=== PATIENT | female | born 1960 | race Caucasian/White ===

== ENCOUNTER 2019-04-09 08:33 | Inpatient (IN) | payer MEDICAID, OTHER | END 2019-05-03 15:15 | disposition home or self-care (01) | LOC: DOU IN ICU 04-11 14:03 → TELE-EAST 04-16 21:50 → EAST 05-02 13:06 → ER 08:33 → CENTRAL 04-10 16:34 → OVERFLOW 13:28 → CENTRAL 15:11 | PROC: 0DB78ZX Excision of Stomach, Pylorus, Via Natural or Artificial Opening Endoscopic, Diagnostic (ICD-10-PCS; principal; 2019-04-10 11:34) | PROC: 0DTM0ZZ Resection of Descending Colon, Open Approach (ICD-10-PCS; 2019-04-10 11:34) | PROC: 0WBF0ZZ Excision of Abdominal Wall, Open Approach (ICD-10-PCS; 2019-04-10 11:34) | PROC: 0DTN0ZZ Resection of Sigmoid Colon, Open Approach (ICD-10-PCS; 2019-04-10 11:34) | PROC: 0DBM8ZX Excision of Descending Colon, Via Natural or Artificial Opening Endoscopic, Diagnostic (ICD-10-PCS; 2019-04-10 11:34) | DX: C18.9 Malignant neoplasm of colon, unspecified (principal); A41.9 Sepsis, unspecified organism; E43 Unspecified severe protein-calorie malnutrition; E87.1 Hypo-osmolality and hyponatremia; D62 Acute posthemorrhagic anemia; J98.11 Atelectasis; K29.70 Gastritis, unspecified, without bleeding; B95.2 Enterococcus as the cause of diseases classified elsewhere; N39.0 Urinary tract infection, site not specified; D64.9 Anemia, unspecified ==

== ENCOUNTER 2019-05-28 16:15 | Inpatient (IN) | payer MEDICAID ==
[~2019-05-28] VITALS: Ht 154.9 cm; Wt 57.4 kg
[~2019-05-28 16:15] MED LIST: FER325T PO; NIC21P TOP; PANT40TA2 PO
[2019-05-28] MEDS ORDERED: SODIUM CHLORIDE 0.9% 1,000 ML IVB ONE (17:08)
[2019-05-28 18:26] LABS: Basophils # (auto) 0.1 uL; Eosinophils # (auto) 0 uL; Lymphocytes # (auto) 2.5 uL; Red Blood Cells 4.51 10^6/uL (4.0-5.20)
[2019-05-28 18:30] LABS: Basophils % (auto) 0.8 % (0.0-2.0); Eosinophils % (auto) 0.3 % (0.0-7.0); Hematocrit 42.7 % (36.0-46.0); Hemoglobin 13.7 g/dL (12.2-16.2); Lymphocytes % (auto) 20.6 % (10.0-50.0); Mean Corpuscular Hemoglobin 30.5 pg (28.0-32.0); Mean Corpuscular Hgb Conc. 32.1 g/dL (32.0-36.0); Mean Corpuscular Volume 94.9 fL (80.0-100.0); Monocytes # (auto) 0.9 uL; Monocytes % (auto) 7.3 % (0.0-12.0); Neutrophils # (auto) 8.8 uL; Platelet Count (auto) 478 10^3/uL (140-450); Red Cell Distribution Width 15.8 % (11.8-14.3); White Blood Cell 12.4 10^3/uL (4.4-10.8)
[2019-05-28 18:47] LABS: INR 1.01 (0.9-1.15); Partial Thromboplastin Time 26.8 sec (23.64-32.05)
[2019-05-28 18:48] LABS: Albumin 3.5 g/dL (3.4-5.0); Calcium 9.8 mg/dL (8.5-10.1); Magnesium 2.5 mg/dL (1.6-2.6); Potassium 3.8 mmol/L (3.5-5.1)
[2019-05-28 18:52] LABS: BUN/Creatinine Ratio 11.5; Bilirubin, Total 0.3 mg/dL (0.2-1.0); Total Protein 8.6 g/dL (6.4-8.2)
[2019-05-28] MEDS ORDERED: IOHEXOL 300 MG/ML 100ML BOTTLE IJ ONE (20:37)
[2019-05-28] MEDS ORDERED: ONDANSETRON HCL 4 MG/2 ML VIAL IV ONE (21:30)
[2019-05-28] MEDS ORDERED: MORPHINE SULF INJ 2 MG/ML SYRINGE 1ML IV ONE (21:30)
[2019-05-29] VITALS (7 sets, daily range): BP systolic 99–130; BP diastolic 52–72
[2019-05-29] MEDS ORDERED: MORPHINE SULFATE 4 MG/ML SYR/VIAL IV ONE (00:15)
[2019-05-29] MEDS ORDERED: PANTOPRAZOLE 40 MG/10 ML VIAL INJ IV ONE (01:15)
[2019-05-29] MEDS ORDERED: FAMOTIDINE (10MG/ML) 2ML VL IV ONE (02:00)
[2019-05-29] MEDS ORDERED: PROMETHAZINE HCL 25 MG/ML 1ML IV ONE (02:00)
[2019-05-29] MEDS ORDERED: SODIUM CHLORIDE 0.9% 1,000 ML IV ONE (02:00)
[2019-05-29] MEDS ORDERED: METOCLOPRAMIDE HCL 5MG/ml INJ 2ml VIAL IV ONE (02:15)
--- NOTE | 2019-05-29 03:30 | NUR ---
Pt Arrived on Unit Pt arrived on unit via stretcher accompanied by 2 family members. Pt is ambulatory with a steady gait. Pt is a/ox4 with no s/s of distress or sob. Pt states that she is in some mild pain but it is tolerable. Safety measures maintained with side rails up, bed in lowest position and call light within reach. Will continue to monitor for changes q1hr and prn.
[2019-05-29] MEDS ORDERED: TRAM50TA2 PO (04:34)
[2019-05-29] MEDS ORDERED: NIC21P TOP (04:34)
[2019-05-29] MEDS ORDERED: ACET120S38 PR (04:34)
[2019-05-29] MEDS ORDERED: ONDA-144 PO (04:34)
--- NOTE | 2019-05-29 04:37 | NUR ---
UNKNOWN DOSAGES ON MED RECONCILIATION PT stated that she is unaware of the dosages she takes on stated medications. She stated she will have her mother bring in the list. Will endorse to day shift.
--- NOTE | 2019-05-29 04:59 | NUR ---
MRSA SWAB SENT TO LAB
[2019-05-29] MEDS: MORPHINE SULFATE 4 MG/ML SYR/VIAL IV PRN ×5 (05:30→22:07)
[2019-05-29] MEDS: ONDANSETRON HCL 4 MG/2 ML VIAL IV PRN ×5 (05:30→22:06)
[2019-05-29] MEDS ORDERED: CLINDAMYCIN 600MG IV 50 ML IV SCH (06:00)
--- NOTE | 2019-05-29 07:45 | NUR ---
RECEIVED REPORT AND ASSUME CARE OF PT. A/OX4. DENIED S/S ACUTE DISTRESS. UPDATE PT WITH POC. BED AT LOWEST POSITION. CALL LIGHT AND BELONGINGS WITHIN REACH. WILL CONT TO MONITOR.
[2019-05-29] MEDS ORDERED: INFLUENZA QUAD 2018-2019 0.5 ML SYRG IM ONE (08:00)
[2019-05-29] MEDS ORDERED: cefTRIAXone 1GM/50ML D5W 50 ML IV SCH (09:00)
[2019-05-29] MEDS ORDERED: VANCOMYCIN PER PHARMACY 0 MG IV SCH (09:30)
[2019-05-29] MEDS: FAMOTIDINE 20 MG TAB PO SCH ×2 (09:47→21:15)
[2019-05-29] MEDS: MEROPENEM 1GM IVPB 100 ML IV SCH ×2 (10:58→21:15)
[2019-05-29] MEDS: VANCOMYCIN 500 MG in D5W 5% 100 ML IV SCH (12:29)
[2019-05-29] MEDS ORDERED: GASTROGRAFIN 120 ML SOL ONE (14:46)
[2019-05-29] MEDS ORDERED: DIAZEPAM 5 MG/ML 2ML SYRG IV ONE (16:15)
[2019-05-29] MEDS: NICOTINE 21MG/24 HR TOPICAL PATCH TD SCH (17:13)
--- NOTE | 2019-05-29 17:41 | NUR ---
assessment Patient will need a resumption order for [facility] on discharge. Addendum: 05/29/19 at 1742 by Yolis COLON Amended: Links added.
--- NOTE | 2019-05-29 19:31 | NUR ---
Opening Shift Note Assumed care of patient, awake and alert. Pt has complaint of ABD pain 05/15. Instructed on POC and to call for assist as needed. Pt is laying in bed with the side rails up x2 and the bed is locked in the lowest position. Call light is within reach. Will continue to monitor.
[2019-05-30] MEDS: VANCOMYCIN 500 MG in D5W 5% 100 ML IV SCH ×2 (00:28→12:00)
[2019-05-30] MEDS: ONDANSETRON HCL 4 MG/2 ML VIAL IV PRN ×4 (04:26→20:33)
[2019-05-30] MEDS: MORPHINE SULFATE 4 MG/ML SYR/VIAL IV PRN ×4 (04:26→20:33)
[2019-05-30 04:59] VITALS: BP 106/59
[2019-05-30 05:25] LABS: Basophils # (auto) 0.1 uL; Basophils % (auto) 0.5 % (0.0-2.0); Eosinophils # (auto) 0.1 uL; Eosinophils % (auto) 0.7 % (0.0-7.0); Hematocrit 39.6 % (36.0-46.0); Lymphocytes # (auto) 3.2 uL; Lymphocytes % (auto) 25.2 % (10.0-50.0); Mean Corpuscular Hemoglobin 30.8 pg (28.0-32.0); Mean Corpuscular Volume 93.3 fL (80.0-100.0); Monocytes # (auto) 0.7 uL; Monocytes % (auto) 5.7 % (0.0-12.0); Neutrophils # (auto) 8.6 uL; Neutrophils % (auto) 67.9 % (37.0-80.0); Platelet Count (auto) 410 10^3/uL (140-450); Red Blood Cells 4.24 10^6/uL (4.0-5.20); Red Cell Distribution Width 15.7 % (11.8-14.3); White Blood Cell 12.6 10^3/uL (4.4-10.8)
[2019-05-30 05:29] LABS: Calcium 8.9 mg/dL (8.5-10.1); Potassium 3.6 mmol/L (3.5-5.1)
[2019-05-30 05:35] LABS: Bilirubin, Total 0.3 mg/dL (0.2-1.0); Total Protein 7.4 g/dL (6.4-8.2)
[2019-05-30 08:00] VITALS: BP 121/68
[2019-05-30 08:15] VITALS: BP 121/68
[2019-05-30] MEDS ORDERED: GASTROGRAFIN 120 ML SOL ONE ×2 (08:52→13:01)
[2019-05-30] MEDS: FAMOTIDINE 20 MG TAB PO SCH ×2 (10:11→21:34)
[2019-05-30] MEDS: MEROPENEM 1GM IVPB 100 ML IV SCH ×2 (10:11→21:34)
[2019-05-30] MEDS: NICOTINE 21MG/24 HR TOPICAL PATCH TD SCH (10:12)
[2019-05-30] MEDS: HYDROcodone-ACET 5/325MG TAB PO PRN ×2 (10:43→23:52)
[2019-05-30] MEDS ORDERED: ALPRAZolam 0.5 MG TAB PO ONE (12:00)
[2019-05-30 12:23] VITALS: BP 132/72
--- NOTE | 2019-05-30 13:17 | NUR ---
PATIENT OFF UNIT PATIENT TAKEN OFF UNIT VIA BED FOR PROCEDURE. Signed: 05/30/19 at 1350 by YARITZA MASCORRO <Co-Signature Required> Co-Signed: 05/30/19 at 1350 by Junior Gilbert RN
[2019-05-30 16:45] VITALS: BP 136/76
--- NOTE | 2019-05-30 19:20 | NUR ---
OPENING NOTE Received report from day shift RN. Patient is A&O X's 4 with no s/s of distress noted. Patient reports abdominal pain, will medicate as prescribed. Educated patient on POC and to use call light when in need of assistance. Patient verbalized understanding. Bed is in lowest/locked position with side rails up X's 2 and call light is within reach of patient. Will continue to monitor for changes and round hourly/PRN.
[2019-05-30 21:30] VITALS: BP 122/74
[2019-05-31] MEDS: VANCOMYCIN 500 MG in D5W 5% 100 ML IV SCH ×2 (00:13→12:53)
[2019-05-31] MEDS: ONDANSETRON HCL 4 MG/2 ML VIAL IV PRN ×2 (00:35→09:06)
[2019-05-31] MEDS: MORPHINE SULFATE 4 MG/ML SYR/VIAL IV PRN ×2 (00:35→09:05)
[2019-05-31 05:00] VITALS: BP 92/55
[2019-05-31 08:00] VITALS: BP 105/60
[2019-05-31] MEDS: FAMOTIDINE 20 MG TAB PO SCH ×2 (10:42→21:44)
[2019-05-31] MEDS: MEROPENEM 1GM IVPB 100 ML IV SCH ×2 (10:42→21:44)
[2019-05-31] MEDS: NICOTINE 21MG/24 HR TOPICAL PATCH TD SCH (10:44)
[2019-05-31 12:00] VITALS: BP 96/69
[2019-05-31] MEDS ORDERED: GOLYTELY 4L KIT PO ONE (13:30)
[2019-05-31] MEDS: KETOROLAC TROMETH 15 mg/ml 1ML VL IV PRN ×2 (13:30→21:44)
[2019-05-31 17:01] VITALS: BP 106/61
[2019-05-31] MEDS: ACETAMINOPHEN 325 MG TAB PO PRN (17:51)
--- NOTE | 2019-05-31 19:10 | NUR ---
OPENING NOTE Received report from day shift RN. Patient is A&O X's 4 with no s/s of distress. She reports no pain at this time. Her family is at bedside. Educated patient on POC and to use call light when in need of assistance. Patient verbalized understanding. She has GOLYTELY at bedside. Bed is in lowest/locked position with side rails up X's 2 and call light is within reach of patient. Will continue to monitor for changes and round hourly/PRN.
[2019-05-31] MEDS: TEMAZEPAM 15 MG CAP PO PRN (21:44)
[2019-05-31 22:00] VITALS: BP 101/66
[2019-06-01] MEDS: VANCOMYCIN 500 MG in D5W 5% 100 ML IV SCH ×2 (00:03→12:07)
[2019-06-01] MEDS: ACETAMINOPHEN 325 MG TAB PO PRN ×3 (02:38→18:53)
--- NOTE | 2019-06-01 02:43 | NUR ---
IV INSERTION IV access obtained, via clean sterile technique by inserting 20 gauge catheter in left hand after 2 attempts. IV secured properly. No trauma to site. Patient tolerated well. 20G IV to left AC was removed at this time. Catheter was fully intact. Gauze applied to site
[2019-06-01 05:00] VITALS: BP 100/57
[2019-06-01] MEDS: KETOROLAC TROMETH 15 mg/ml 1ML VL IV PRN ×3 (06:16→22:55)
[2019-06-01 08:00] VITALS: BP 111/66
[2019-06-01] MEDS: NICOTINE 21MG/24 HR TOPICAL PATCH TD SCH (10:45)
[2019-06-01] MEDS: FAMOTIDINE 20 MG TAB PO SCH ×2 (10:45→21:33)
[2019-06-01] MEDS: MEROPENEM 1GM IVPB 100 ML IV SCH ×2 (10:46→21:33)
[2019-06-01 12:30] VITALS: BP 108/67
[2019-06-01 17:00] VITALS: BP 103/64
--- NOTE | 2019-06-01 20:00 | NUR ---
RECEIVED PATIENT FROM DAY SHIFT RN. PATIENT RESTING IN BED. NO S/S OF DISTRESS NOTED. C/O PAIN @ 4/10 AFTER PAIN MEDICATION GIVEN EARLIER. PATIENT UNDERSTOOD THE SCHEDULE OF PAIN MANAGEMENT. WILL COME BACK FOR PAIN MEDICATION LATER WHEN THE TIME IS DUE AND PER PATIENT REQUESTS. POC INSTRUCTED AND ENCOURAGED PATIENT TO CALL FOR SWITCHBOARD OPERATOR IF NEEDED. BED IN LOWEST POSITION WITH SIDE RAILS UP X 2. CALL TAVERAS WITHIN REACH. ALARM ON. CONTINUE TO MONITOR FOR CHANGES Q1H AND PRN.
[2019-06-01] MEDS: TEMAZEPAM 15 MG CAP PO PRN (21:33)
[2019-06-01 22:00] VITALS: BP 105/62
--- NOTE | 2019-06-01 22:55 | NUR ---
PAIN MANAGEMENT AND IV INSERTION IV insertion IV access obtained, via clean sterile technique by inserting [22] gauge catheter at [LFA] after [1] attempt(s). IV secured properly. No trauma to site. Patient tolerated well. IV removal IV INFILTRATED ON LW. DC'd with clean sterile technique, catheter fully intact. Pressure dressing applied to site. Patient tolerated well. PAIN MEDICATION GIVEN ORDERED FOR PAIN @ 7/10. CONTINUE TO MONITOR.
[2019-06-02] MEDS: VANCOMYCIN 500 MG in D5W 5% 100 ML IV SCH ×2 (00:15→12:05)
--- NOTE | 2019-06-02 02:25 | NUR ---
PATIENT SLEEPING. NO S/S OF DISTRESS NOTED. CONTINUE CARE.
[2019-06-02 04:54] VITALS: BP 136/67
[2019-06-02] MEDS: KETOROLAC TROMETH 15 mg/ml 1ML VL IV PRN ×2 (06:47→20:24)
--- NOTE | 2019-06-02 06:48 | NUR ---
PATIENT C/O PAIN @ 04/15. MEDICATED PATIENT ORDERED. CONTINUE TO MONITOR.
[2019-06-02 06:57] LABS: Basophils # (auto) 0 uL; Basophils % (auto) 0.3 % (0.0-2.0); Eosinophils # (auto) 0.1 uL; Eosinophils % (auto) 0.8 % (0.0-7.0); Hematocrit 37.7 % (36.0-46.0); Hemoglobin 12.5 g/dL (12.2-16.2); Lymphocytes # (auto) 1.7 uL; Lymphocytes % (auto) 16.2 % (10.0-50.0); Mean Corpuscular Hgb Conc. 33.2 g/dL (32.0-36.0); Mean Corpuscular Volume 93.4 fL (80.0-100.0); Monocytes # (auto) 0.6 uL; Monocytes % (auto) 5.7 % (0.0-12.0); Platelet Count (auto) 327 10^3/uL (140-450); Red Blood Cells 4.04 10^6/uL (4.0-5.20); Red Cell Distribution Width 15.4 % (11.8-14.3); White Blood Cell 10.4 10^3/uL (4.4-10.8)
[2019-06-02 09:00] VITALS: BP 110/60
[2019-06-02] MEDS: NICOTINE 21MG/24 HR TOPICAL PATCH TD SCH (09:47)
[2019-06-02] MEDS: MEROPENEM 1GM IVPB 100 ML IV SCH ×2 (09:47→22:26)
[2019-06-02] MEDS: FAMOTIDINE 20 MG TAB PO SCH ×2 (09:47→22:26)
[2019-06-02] MEDS: ACETAMINOPHEN 325 MG TAB PO PRN ×2 (11:59→19:15)
[2019-06-02 13:00] VITALS: BP 125/70
--- NOTE | 2019-06-02 14:40 | NUR ---
Hospitalist at bedside MD Sharpe at bedside aware of patient's status. Awaiting new orders at this time. COnt care
--- NOTE | 2019-06-02 15:45 | NUR ---
Patient showered small serous drainage noted from puncture wound to left abd from hx drain per patient. Patient states she informed surgeon and he said to clean it "with rinse spray". Abd cleaned with warm water and padded dry with sterile gauze. 4x4 gauze applied to absorb small drainage. Will cont care
[2019-06-02 17:00] VITALS: BP 107/52
--- NOTE | 2019-06-02 19:12 | NUR ---
C/O PAIN PATIENT REQUESTING TYLENOL FOR ABD PAIN. MEDICATED ORDERED. PATIENT CARE ENDORSED TO NETO BROWN. PATIENT IN NO DISTRESS OR SOB NOTED. CALL LIGHT WITHIN REACH
--- NOTE | 2019-06-02 19:28 | NUR ---
RECEIVED PATIENT FROM DAY SHIFT RN. PATIENT RESTING IN BED. NO S/S OF DISTRESS NOTED. C/O PAIN @ 5/10 AFTER PAIN MEDICATION GIVEN EARLIER. PATIENT UNDERSTOOD THE SCHEDULE OF PAIN MANAGEMENT. WILL COME BACK FOR PAIN MEDICATION LATER WHEN THE TIME IS DUE AND PER PATIENT REQUESTS. POC INSTRUCTED AND ENCOURAGED PATIENT TO CALL FOR BOILER PLANT WORKER IF NEEDED. BED IN LOWEST POSITION WITH SIDE RAILS UP X 2. CALL TAVERAS WITHIN REACH. ALARM ON. CONTINUE TO MONITOR FOR CHANGES Q1H AND PRN.
--- NOTE | 2019-06-02 20:25 | NUR ---
MEDIATED PATIENT FOR PAIN @ 5/10 ORDERED. CONTINUE TO MONITOR.
[2019-06-02 22:00] VITALS: BP 113/72
[2019-06-02] MEDS: TEMAZEPAM 15 MG CAP PO PRN (22:26)
[2019-06-03] MEDS: VANCOMYCIN 500 MG in D5W 5% 100 ML IV SCH ×2 (00:11→13:15)
--- NOTE | 2019-06-03 00:13 | NUR ---
PATIENT SLEEPING. NO S/S OF DISTRESS AND PAIN NOTED. CONTINUE CARE.
[2019-06-03] MEDS: ACETAMINOPHEN 325 MG TAB PO PRN ×3 (02:45→21:59)
--- NOTE | 2019-06-03 02:46 | NUR ---
PATIENT WOKE UP AND C/O PAIN @ 02/13. MEDICATED PATIENT ORDERED. CONTINUE TO MONITOR.
[2019-06-03 04:46] VITALS: BP 128/66
[2019-06-03 05:50] LABS: BUN/Creatinine Ratio 13.2; Calcium 8.8 mg/dL (8.5-10.1); Potassium 3.3 mmol/L (3.5-5.1)
--- NOTE | 2019-06-03 08:00 | NUR ---
RECEIVED PATIENT ALERT AND ORIENTED X4, NOT IN DISTRESS, RESTING ON BED AND SLEEPING, DENIED ABDOMINAL PAIN, PENDING SS CONSULT, WILL CONTINUE MONITORING.
--- NOTE | 2019-06-03 08:20 | NUR ---
OUT OF BED, AMBULATING AROUND THE UNIT, DENIED PAIN, TOLERATING WELL, WILL CONTINUE MONITORING.
[2019-06-03] MEDS: KETOROLAC TROMETH 15 mg/ml 1ML VL IV PRN ×2 (08:44→18:00)
[2019-06-03 09:13] VITALS: BP 105/72
--- NOTE | 2019-06-03 10:00 | NUR ---
SITTING ON BED , NOT IN DISTRESS, PAIN L=3/10 AT THIS MOMENT, FAMILY AT BED SIDE, WILL CONTINUE MONITORING.
[2019-06-03] MEDS: FAMOTIDINE 20 MG TAB PO SCH ×2 (10:01→21:59)
[2019-06-03] MEDS: MEROPENEM 1GM IVPB 100 ML IV SCH ×2 (10:01→21:59)
[2019-06-03] MEDS: NICOTINE 21MG/24 HR TOPICAL PATCH TD SCH (10:02)
--- NOTE | 2019-06-03 10:30 | NUR ---
K=3.3 . WAS CALLED FOR FOLLOW UP AND LEFT A MASSAGE, WAITING FOR CALL BACK.
--- NOTE | 2019-06-03 11:06 | NUR ---
OUT OF BED AND AMBULATING AROUND THE UNIT ACCOMPANIED BY FAMILY MEMBER, DENIED PAIN, TOLERATING WELL, WILL CONTINUE MONITORING.
[2019-06-03] MEDS ORDERED: POTASSIUM CHLORIDE 40 MEQ, LIDOCAINE 1% (LOCAL ANESTH.) 4 ML in SODIUM CHL 0.9% 100 ML IV ONE (11:30)
[2019-06-03 12:30] VITALS: BP 103/69
--- NOTE | 2019-06-03 15:14 | NUR ---
Nutrition Assessment Notes please see attached link for complete assessment. Est. Needs BW (58 kg): 5822-4593 kcal (25-30 kcal/kgBW), 58-69 gms pro (1.0-1.2 gms/kgBW). Will continue to monitor pertinent labs and reassess nutrient need prn Addendum: 06/03/19 at [address] Amended: Links added.
[2019-06-03 17:05] VITALS: BP 124/60
--- NOTE | 2019-06-03 19:17 | NUR ---
TOLERATED 100% OF PROVIDED DINNER TRY, NOT IN DISTRESS, RESTING ON BED, PAIN L=3/10 AT THIS MOMENT REPORTED, PENDING PORT CATH IN AM ORDERED, REPORT WAS GIVEN TO THE MUTUAL FUND ANALYST RN.
--- NOTE | 2019-06-03 19:20 | NUR ---
RECEIVED PATIENT FROM DAY SHIFT RN. PATIENT RESTING IN BED. NO S/S OF DISTRESS NOTED. C/O PAIN @ 3/10 AFTER PAIN MEDICATION GIVEN EARLIER. PATIENT UNDERSTOOD THE SCHEDULE OF PAIN MANAGEMENT. REINFORCED NPO AFTER MIDNIGHTT FOR PROCEDURE TOMORROW. PATIENT VERBALIZED UNDERSTANDING. POC INSTRUCTED AND ENCOURAGED PATIENT TO CALL FOR COMPETITIVE INTELLIGENCE ANALYST IF NEEDED. BED IN LOWEST POSITION WITH SIDE RAILS UP X 2. CALL TAVERAS WITHIN REACH. ALARM ON. CONTINUE TO MONITOR FOR CHANGES Q1H AND PRN.
[2019-06-03] MEDS: TEMAZEPAM 15 MG CAP PO PRN (21:59)
--- NOTE | 2019-06-03 21:59 | NUR ---
IV insertion IV access obtained, via clean sterile technique by inserting [22] gauge catheter at [LFA] after [1] attempt(s). IV secured properly. No trauma to site. Patient tolerated well. IV removal IV INFILTRATED AND DC'd with clean sterile technique, catheter fully intact. Pressure dressing applied to site. Patient tolerated well. NOTE:
[2019-06-03 22:00] VITALS: BP 114/64
[2019-06-04] MEDS: VANCOMYCIN 500 MG in D5W 5% 100 ML IV SCH ×2 (00:20→13:34)
--- NOTE | 2019-06-04 00:29 | NUR ---
PATIENT SLEEPING. STARTING NPO NOW. FOOD AND WATER REMOVED FROM PATIENT BEDSIDE. CONTINUE TO MONITOR.
[2019-06-04] MEDS: KETOROLAC TROMETH 15 mg/ml 1ML VL IV PRN ×3 (02:30→20:16)
--- NOTE | 2019-06-04 02:31 | NUR ---
PATIENT WOKE UP AND C/O PAIN @ 03/15. MEDICATED PATIENT ORDERED. CONTINUE TO MONITOR.
[2019-06-04 05:00] VITALS: BP 127/77
--- NOTE | 2019-06-04 06:11 | NUR ---
PATIENT TOOK SHOWER, CHG WIPES DONE, TOTAL LINEN AND GOWN CHANGED. PATIENT TOLERATED. WELL. CONTINUE TO MONITOR.
[2019-06-04 06:42] LABS: Basophils # (auto) 0.1 uL; Basophils % (auto) 0.6 % (0.0-2.0); Eosinophils # (auto) 0.1 uL; Eosinophils % (auto) 1.4 % (0.0-7.0); Hematocrit 38.2 % (36.0-46.0); Hemoglobin 12.6 g/dL (12.2-16.2); Lymphocytes # (auto) 2.1 uL; Mean Corpuscular Hgb Conc. 33.1 g/dL (32.0-36.0); Mean Corpuscular Volume 93.7 fL (80.0-100.0); Monocytes # (auto) 0.5 uL; Monocytes % (auto) 5.9 % (0.0-12.0); Neutrophils # (auto) 5.8 uL; Neutrophils % (auto) 68.1 % (37.0-80.0); Platelet Count (auto) 349 10^3/uL (140-450); Red Blood Cells 4.07 10^6/uL (4.0-5.20); Red Cell Distribution Width 15.6 % (11.8-14.3); White Blood Cell 8.6 10^3/uL (4.4-10.8)
[2019-06-04 07:10] LABS: Potassium 3.5 mmol/L (3.5-5.1)
[2019-06-04 07:15] LABS: BUN/Creatinine Ratio 14.7; Calcium 8.8 mg/dL (8.5-10.1); Magnesium 2.2 mg/dL (1.6-2.6)
--- NOTE | 2019-06-04 08:00 | NUR ---
RECEIVED PATIENT ALERT AND ORIENTED X4, NOT IN DISTRESS, LS CLEAR SOUNDS IN BILATERAL UPPER AND LOWER LUNG LOBES, RR=18 SAT=98% IN RA, DENIED SOB AND CHEST PAIN OR DISCOMFORT, HEART RATE=94, ABDOMEN SOFT WITH ACTIVE BS, KEEP NPO ORDERED, LAST BM=06/02/19 REPORTED, SKIN INTACT WARM TO TOUCH, RADIAL AND PEDAL PULSES PALPABLE,TOOK A SHOWER AND HCG CLEAN UP ORDERED, RESTING ON BED, PAIN L=2/10 REPORTED, MOTHER AT BED SIDE, HEAD OF BED ELEVATED, BED ON LOWER POSITION, RAILS UP X2, CALL LIGHT ON REACH, PENDING PORT CATH INSERTION THIS MORNING ORDERED AND SS CONSULT, WILL CONTINUE MONITORING.
[2019-06-04] MEDS ORDERED: ceFAZolin 1GM/50ML 50 ML IV ONE (08:13)
--- NOTE | 2019-06-04 08:30 | NUR ---
CONSENT AND CHECK LIST COMPLETED AND ON CHART, WENT ON BED TO PRE OP, TOLERATED WELL, WILL CONTINUE FOLLOW UP.
[2019-06-04] MEDS ORDERED: ceFAZolin 1GM VL ONE (08:34)
[2019-06-04] MEDS ORDERED: LIDOCAINE 1% HCL (LOCAL ANESTH.) INJ 20ML MDV ONE (08:34)
[2019-06-04] MEDS ORDERED: HEPARIN SODIUM (PORCINE) 5000 UNITS/ML 1ML VIAL ONE (08:35)
[2019-06-04] MEDS ORDERED: HEPARIN 1,000 UNITS/ml 1ML VIAL ONE (08:35)
[2019-06-04] MEDS ORDERED: NALOXONE HCL 0.4 MG/ML VIAL IV PRN (09:00)
[2019-06-04] MEDS ORDERED: ONDANSETRON HCL 4 MG/2 ML VIAL IV ONE (09:00)
[2019-06-04] MEDS ORDERED: HYDROmorphone HCL 2 MG/ML VL IV PRN (09:00)
[2019-06-04] MEDS ORDERED: METOCLOPRAMIDE HCL 5MG/ml INJ 2ml VIAL ONE (09:02)
[2019-06-04] MEDS ORDERED: diphenhdrAMINE HCL 50 MG/1 ML VL ONE (09:02)
[2019-06-04] MEDS ORDERED: MIDAZOLAM HCL 1MG/1ML-2 ML VIAL ONE (09:02)
[2019-06-04] MEDS ORDERED: GLYCOPYRROLATE 0.2 MG/ML 1ML VIAL ONE (09:02)
[2019-06-04] MEDS ORDERED: LIDOCAINE 2% (LOCAL ANESTH.) PF 5ml SDV ONE (09:08)
[2019-06-04] MEDS ORDERED: PROPOFOL 10 MG/ML 20 ML IV ONE (09:08)
[2019-06-04] MEDS ORDERED: POTASSIUM CHLORIDE 40 MEQ, LIDOCAINE 1% (LOCAL ANESTH.) 4 ML in SODIUM CHL 0.9% 100 ML IV ONE ×2 (10:15→15:45)
[2019-06-04] MEDS: FAMOTIDINE 20 MG TAB PO SCH ×2 (10:57→22:08)
[2019-06-04] MEDS: NICOTINE 21MG/24 HR TOPICAL PATCH TD SCH (10:58)
[2019-06-04] MEDS: MEROPENEM 1GM IVPB 100 ML IV SCH ×2 (11:10→22:08)
--- NOTE | 2019-06-04 12:00 | NUR ---
CAME BACK FROM PRE OP, LT. UPPER CHEST PORT CATH SITE DRY AND INTACT, COVERED WITH DRY AND INTACT DRESSING, NO REDNESS OR ECCHYMOSES NOTED, TOLERATED WELL, PAIN L=3/10 REPORTED, T=97.8 RR=16, SAT=94% P=77 BF=455/66, RESTING ON BED, MOTHER AT BED SIDE. WILL CONTINUE MONITORING.
[2019-06-04 13:00] VITALS: BP 136/89
--- NOTE | 2019-06-04 14:00 | NUR ---
DR. CHAMBERS WAS PAGED FOR FOLLOW UP AND WAITING FOR CALL BACK, PHARMACY WAS CALLED FOR PENDING K RIDER IV, MEDICATION WILL BE TUBED REPORTED, WAITING FOR MEDICATION.
--- NOTE | 2019-06-04 15:00 | NUR ---
SS WAS CALLED FOR TRANSFER TO [facility] PROCESS FOLLOW UP, LEFT A MESSAGE AND WAITING FOR CALL BACK
[2019-06-04] MEDS: ACETAMINOPHEN 325 MG TAB PO PRN (15:40)
--- NOTE | 2019-06-04 16:14 | NUR ---
PHARMACY WAS CONTACTED FOR FOLLOW UP OF EMERITAING Papito WHITEHEAD.
--- NOTE | 2019-06-04 16:38 | NUR ---
I called [facility] and spoke with Harbor Tug Captain Lea [phone] regarding the order to transfer this patient to [facility]. She said that [facility] has to be approved by her director and that they normally want us to reach out to other facilities first. I sent transfer order and face sheet to [facility] as well as Lorrie Mitchell.
[2019-06-04 17:23] VITALS: BP 129/68
--- NOTE | 2019-06-04 17:50 | NUR ---
C/O ANXIETY, DR. PEREZ WAS CALLED FOR FOLLOW UP, WAITING FOR CALL BACK, PATIENT WAS GUIDED WITH RELAXATION TECHNIC AND DEEP BREATHING, ABLE TO CALM DOWN, SITTING ON BED DANGLING, SOCIALIZING WITH FAMILY.
--- NOTE | 2019-06-04 19:35 | NUR ---
Opening Shift Note Assumed care of patient, awake and alert. No S/S of distress/SOB. Instructed on POC and to call for assist PRN, will continue to monitor for changes Q1hr and PRN.
--- NOTE | 2019-06-04 19:57 | NUR ---
NOT IN DISTRESS, PAIN L=4/10 REPORTED, REPORT WAS GIVEN TO THE ANIMAL HOSPITAL OFFICE SUPERVISOR RN.
[2019-06-04 22:02] VITALS: BP 113/85
[2019-06-05] MEDS: VANCOMYCIN 500 MG in D5W 5% 100 ML IV SCH ×2 (00:11→14:10)
[2019-06-05] MEDS: KETOROLAC TROMETH 15 mg/ml 1ML VL IV PRN ×2 (03:26→12:07)
[2019-06-05 05:00] VITALS: BP 123/61
[2019-06-05] MEDS: ACETAMINOPHEN 325 MG TAB PO PRN ×2 (06:30→17:27)
--- NOTE | 2019-06-05 07:02 | NUR ---
patient is alert and oriented x4 with no distress noted, respirations are unlabored, sitting up in bed watching tv, she verbalized she has a mass to her left abdomen"somewhere", and will be transferred to [facility]. she is tolerating her diet, had a bowel movement today, pain has been managed as tolerated.
[2019-06-05 09:00] VITALS: BP_SYST 126; BP_SYST 141; BP_DIAS 71; BP_DIAS 85
--- NOTE | 2019-06-05 09:02 | NUR ---
I spoke with America at the [facility], she will present the information to her MD to see if they will be able to accept this patient.
[2019-06-05] MEDS: MEROPENEM 1GM IVPB 100 ML IV SCH ×2 (09:34→21:32)
[2019-06-05] MEDS: FAMOTIDINE 20 MG TAB PO SCH ×2 (09:34→21:32)
[2019-06-05] MEDS: NICOTINE 21MG/24 HR TOPICAL PATCH TD SCH (09:34)
[2019-06-05 13:00] VITALS: BP 114/66
--- NOTE | 2019-06-05 14:07 | NUR ---
Midline Placement: Patient educated on need for midline placement. All risks and benefits explained and all questions and concerns addresses prior to procedure. 18g/10cm midline inserted via RT BRACHIAL vein using Ultrasound. Sterile technique utilized. Blood return obtained from single lumen and flushed easily with NS using proper technique. Midline secured with saline lock; biodisc and occlusive dressing applied. Primary RN notified. Midline lot # [id number].
[2019-06-05 17:00] VITALS: BP 126/70
--- NOTE | 2019-06-05 17:04 | NUR ---
I called [facility] transfer center [phone] and spoke with Bonnie, provided her with contact information for the nurse's station as well as Dr. Phillips-faxed her requested items to [phone].
--- NOTE | 2019-06-05 19:35 | NUR ---
Opening Shift Note Assumed care of patient, awake and alert. Family present at bedside. No S/S of distress/SOB but complains of abdominal pain. Will treat with PRN pain medication. Instructed on POC and to call for assist PRN, will continue to monitor for changes Q1hr and PRN.
[2019-06-05] MEDS: HYDROcodone-ACET 5/325MG TAB PO PRN (20:28)
[2019-06-05 22:00] VITALS: BP 106/61
[2019-06-06] MEDS: VANCOMYCIN 500 MG in D5W 5% 100 ML IV SCH ×2 (00:49→12:40)
[2019-06-06 05:00] VITALS: BP 130/75
[2019-06-06] MEDS: HYDROcodone-ACET 5/325MG TAB PO PRN ×2 (05:01→10:09)
--- NOTE | 2019-06-06 08:48 | NUR ---
I called [facility] transfer center [phone] and spoke with Leesa, she said they are waiting for the doctors to talk to see if they will be willing to accept this patient. I called [facility] and spoke with Lea, authorization for facility is [id number] and the authorization for [facility] is [id number].
[2019-06-06 09:00] VITALS: BP 123/66
--- NOTE | 2019-06-06 09:00 | NUR ---
I called [facility] transfer center [phone] and spoke with Sowmya, faxed her Dr. Stover's notes as requested-she will present it to her MD and let me know if they are willing to accept this patient.
--- NOTE | 2019-06-06 09:40 | NUR ---
I spoke with patient's mom Devora to update her on the status of the transfer-provided her with contact information for [facility] Agriculture Engineer Lea.
[2019-06-06] MEDS: MEROPENEM 1GM IVPB 100 ML IV SCH ×2 (09:49→23:41)
[2019-06-06] MEDS: FAMOTIDINE 20 MG TAB PO SCH ×2 (09:49→22:56)
[2019-06-06] MEDS: NICOTINE 21MG/24 HR TOPICAL PATCH TD SCH (09:50)
--- NOTE | 2019-06-06 12:50 | NUR ---
Nutrition Follow-up Notes Wt.: 59.4 kg Pt awake in pain with no family by beside. per records pt with possible cancer reoccurrence. per records pt with possible abdominal fluid collection awaiting tx to higher level of care. pt is now advanced to full liq diet with adequate PO of 75% x 4 per RN doc Est. Needs BW (58 kg): 3079-6729 kcal (25-30 kcal/kgBW), 58-69 gms pro (1.0-1.2 gms/kgBW). Will continue to monitor pertinent labs and reassess nutrient need prn Labs: ALB 3.0 L. rest lab wnl Skin: Jonathan scale 19 low risk no wounds per RN doc. GI: Pt had 2 BM today per talent coordinator. PES: Altered nutrition related lab values r/t acute/chronic medical condition aeb mild hypoalb Will continue to monitor PO intake, skin status, pertinent labs and weight trend. F/u in 3-5 days. Rec.: 1.) advance diet as medically feasible. 2) consider ensure Enlive 1 carton bid. 3) continue current plan of care
[2019-06-06 12:55] VITALS: BP 107/69
--- NOTE | 2019-06-06 14:25 | NUR ---
RECEIVED A CALL FROM LESLIE FROM [facility] [phone], PER LESLIE SHE HAS NOT BEEN ABLE TO CONTACT MELINDA/DIRECTOR OF PULMONARY UNIT, MELINDA NEEDS THE CELL PHONE NUMBER OF THE SURGEON WHO PERFORMED PT'S SURGERY, CALLED MELINDA LEFT A MESSAGE REGARDING LESLIE REQUESTING A CALL BACK FROM MELINDA, PAGED MELINDA AWAITING CALL BACK.
--- NOTE | 2019-06-06 14:25 | NUR ---
CALLED AND SPOKE TO DR. COCHRAN REGARDING PHARMACY REQUESTING FOR VANCO AND MEROPENEM TO BE CHANGED TO LEVAQUIN AND FLAGYL, PER DR. COCHRAN FOR PT TO CONTINUE WITH CURRENT ANTIBIOTIC TREATMENT.
--- NOTE | 2019-06-06 14:53 | NUR ---
I provided Dr. Phillips with contact information for [facility] (their physician has not contacted him yet).
--- NOTE | 2019-06-06 15:34 | NUR ---
I called [facility] and left message for housekeeping manager asking about bed availability for this patient. I also called [facility] and left message asking about bed availability.
--- NOTE | 2019-06-06 15:40 | NUR ---
I called [facility] transfer center [phone] and left message asking for an update on the transfer for this patient.
[2019-06-06] MEDS ORDERED: SERTRALINE HCL 50 MG TAB PO ONE (15:45)
[2019-06-06] MEDS ORDERED: ALPRAZolam 0.25 MG TAB PO PRN (15:45)
[2019-06-06] MEDS: ACETAMINOPHEN 325 MG TAB PO PRN ×2 (16:01→22:57)
--- NOTE | 2019-06-06 16:20 | NUR ---
Called and spoke to Dr. Phillips regarding pt requesting for norco to be changed to tramadol. orders received for Tramadol 50 mg po q 6 hr prn.
[2019-06-06 16:54] VITALS: BP 130/69
--- NOTE | 2019-06-06 19:45 | NUR ---
Opening Shift Note Assumed care of patient, awake and alert. No S/S of distress/SOB. The patient c/o 6/10 abdominal and left shoulder pain and requested pain medication. Will treat with PRN pain medication. Instructed on POC and to call for assist PRN, will continue to monitor for changes Q1hr and PRN.
[2019-06-06] MEDS: traMADol HCL 50 MG TAB PO PRN (19:50)
--- NOTE | 2019-06-06 21:35 | NUR ---
MIDLINE ASSESSMENT The patient's midline is resistant to flush. Charge nurse tried to flush midline with 10 cc normal saline but was unable to successfully do so. Will page hospitalist.
[2019-06-06 21:51] VITALS: BP 131/71
[2019-06-06] MEDS ORDERED: CATHFLO ACTIVASE (ALTEPLASE) 2 MG VIAL IV ONE (22:15)
--- NOTE | 2019-06-06 22:15 | NUR ---
HOSPITALIST PAGED Discussed difficulty flushing midline with hospitalist. Obtained order for Cathflo Activase 2 mg.
--- NOTE | 2019-06-06 23:00 | NUR ---
MIDLINE ASSESSMENT Prior to needing to administer the Cathflo Activase, was able to successfully flush midline without resistance. Cathflo was not needed for midline.
[2019-06-07] MEDS: VANCOMYCIN 500 MG in D5W 5% 100 ML IV SCH ×2 (02:35→12:10)
[2019-06-07 04:32] VITALS: BP 120/70
[2019-06-07] MEDS: traMADol HCL 50 MG TAB PO PRN ×3 (07:33→22:43)
--- NOTE | 2019-06-07 08:00 | NUR ---
RECEIVED PT RESTING IN BED, CALL LIGHT WITHIN REACH, PT REPORTS NAUSEA AT THIS TIME AND IS REQUESTING ANTINAUSEA MEDICATION, PT REPORTS MILD ABDOMINAL PAIN 01/13, PT WAS GIVEN PAIN MEDICATION BY DIGITIZER NURSE. WILL MEDICATE PT AND WILL CONTINUE TO MONITOR PT.
[2019-06-07] MEDS: ONDANSETRON HCL 4 MG/2 ML VIAL IV PRN ×3 (08:14→20:04)
[2019-06-07 09:00] VITALS: BP 131/68
[2019-06-07] MEDS: MEROPENEM 1GM IVPB 100 ML IV SCH ×2 (09:53→21:57)
[2019-06-07] MEDS: SERTRALINE HCL 50 MG TAB PO SCH (09:54)
[2019-06-07] MEDS: FAMOTIDINE 20 MG TAB PO SCH ×2 (09:54→21:58)
[2019-06-07] MEDS: NICOTINE 21MG/24 HR TOPICAL PATCH TD SCH (09:54)
[2019-06-07] MEDS: ACETAMINOPHEN 325 MG TAB PO PRN ×2 (10:10→20:03)
--- NOTE | 2019-06-07 10:11 | NUR ---
I called [facility] transfer center and spoke with Nai-they are not able to accept this patient at this time. Addendum: 06/07/19 at 1023 by Lauryn Garcia RN I spoke with Dr. Phillips regarding the status of the transfer-he will speak with patient/family regarding the plan of care and give me an update.
--- NOTE | 2019-06-07 12:42 | NUR ---
I called Dr. Phillips to discuss the plan of care for this patient/transfer-he said he will be speaking with Dr. Stover and the family/patient as well.
[2019-06-07 12:48] VITALS: BP 103/68
--- NOTE | 2019-06-07 14:58 | NUR ---
I faxed clinical information/transfer request/transfer back agreement to [facility].
--- NOTE | 2019-06-07 16:25 | NUR ---
I called [facility] transfer center [phone] and left message for them to call me back regarding possible acceptance of this patient.
--- NOTE | 2019-06-07 16:26 | NUR ---
RECEIVED A CALL FROM DR. COCHRAN REQUESTING THE CD FOR THE CT SCAN AND THE PATHOLOGY REPORT TO BE REQUESTED AND SENT WITH PT TO [facility] WHEN TRANSFER. CALLED LAB AND REQUESTED THE PATHOLOGY REPORT, AND PLACED THE ORDER FOR THE ABDOMINAL /PELVIS CT SCAN CD.
--- NOTE | 2019-06-07 16:43 | NUR ---
I attempted to place [facility] on ikrx-ozmg-oixiv number busy despite trying several times. Phone number for [facility] is , [facility] auth number for [facility] is [id number], and [facility] auth number for transferring facility is [id number] to me by Lea at [facility] [phone]-I relayed this information to nurse Kat. I called [facility] transfer center again [phone] and left another message asking about a possible bed assignment for this patient.
[2019-06-07 17:00] VITALS: BP 140/64
--- NOTE | 2019-06-07 19:10 | NUR ---
OPENING NOTE - NOC SHIFT PATIENT IS ALERT AND ORIENTED X4, ANSWERS IN COMPLETE SENTENCES AND MAKES APPROPRIATE EYE CONTACT. PATIENT IS IN BED, BED IS LOCKED IN LOWEST POSITION, BED RAILS UP X2. BEDSIDE TABLE WITHIN REACH, CALL LIGHT WITHIN REACH. DISCUSSED POC WITH PATIENT AND INSTRUCTED PATIENT TO CALL PRN; PATIENT VERBALIZED UNDERSTANDING. PATIENT STATES THAT SHE IS UPSET ABOUT HER DIAGNOSIS AND THAT SHE IS AFRAID OF WHAT IS GOING TO HAPPEN NEXT, PROVIDED PATIENT WITH COMFORT AND OFFERED FOR HER TO CALL ME USING THE CALL LIGHT IF SHE WANTS TO TALK DURING THE NIGHT. WILL CONTINUE TO MONITOR Q1H AND PRN.
[2019-06-07 22:00] VITALS: BP 136/75
--- NOTE | 2019-06-07 23:47 | NUR ---
RECEIVED CALL FROM CHHAYA ANIMAL HUMANE AGENT SUPERVISOR AT [facility] [phone]. CHHAYA STATED THAT [facility] [place]ED [place] FOR PATIENT. CHHAYA WAS INFORMED THAT A TRANSFER ORDER WAS NOT PUT IN BY DOCTOR COCHRAN BUT WILL ATTEMPT TO PAGE DOCTOR FOR TELEPHONE ORDERS. CHHAYA STATED THAT THEY CANNOT HOLD THE BED UNTIL AM. CHARGE NURSE AND SAMPLE SEWER ARE AWARE THAT DOCTOR ORDERS WERE NOT PUT IN FOR TRANSFER, PER SAMPLE SEWER TRANSFER SHOULD WAIT. WILL ATTEMPT TO PAGE DR COCHRAN FOR TRANSFER ORDERS.
--- NOTE | 2019-06-07 23:58 | NUR ---
PATIENT REFUSES TRANSFER FOR THIS SHIFT. INFORMED PATIENT OF PLANNED TRANSFER FOR TONIGHT AND BED AVAILABILITY AT [facility] BEFORE CALLING DOCTOR COCHRAN FOR TRANSFER ORDERS. PATIENT STATED THAT DR COCHRAN HAD INFORMED HER THAT TRANSFER WOULD MOST LIKELY BE ON MONDAY AND THAT IS WHAT SHE HAD PLANNED FOR. PATIENT STATES THAT SHE CANNOT TRANSFER TO [facility] WITHOUT HER MOTHER AND THAT HER MOTHER CANNOT DRIVE TO [facility] AT THIS TIME. PATIENT APPEARS TO BE DISTRESSED AND STATES THAT SHE DOES NOT WANT TO TRANSFER TONIGHT, STATING " NO, NO I CAN'T LEAVE WITHOUT MY MOM, I WANT MY MOM TO BE WITH ME". PATIENT IS AWARE THAT BED AVAILABILITY WILL BE CANCELLED AND THAT IT IS POSSIBLE THAT BED AVAILABILITY WILL NOT BE ON MONDAY BUT AFTER. ALSO, DISCUSSED WITH PATIENT HEALTH RISKS OF DELAYING CARE, PATIENT STILL REFUSES TRANSFER FOR TONIGHT AND STATES THAT IT WILL BE BETTER MONDAY OR LATER IF THAT IS NECESSARY IN ORDER FOR HER MOTHER TO BE ABLE TO GO TO [facility] AND STAY WITH HER. WILL INFORM CHHAYA AT [facility] OF PATIENT'S DECISION.
[2019-06-08] MEDS: VANCOMYCIN 500 MG in D5W 5% 100 ML IV SCH ×2 (00:18→11:40)
--- NOTE | 2019-06-08 00:30 | NUR ---
DISCUSSED WITH PATIENT HER DECISION OF CANCELLING BED AT [facility] BEFORE CALLING CHHAYA CRTTS AT [facility]. I THOUGHT IT WAS IMPORTANT TO GIVE PATIENT TIME TO THINK ABOUT HER DECISION BEFORE CALLING AND CANCELLING THE BED. PATIENT STILL INSISTS THAT SHE CANNOT TRANSFER TONIGHT, SHE STATES, "THIS IS TOO MUCH, I CAN'T LEAVE TONIGHT, I CAN'T DO IT WITHOUT MY MOM". PROVIDED THE PATIENT WITH COMFORT AND ASSURED HER THAT HER DECISIONS ARE BEING RESPECTED AND THAT MY INTENTION IS TO BE THE BEST ADVOCATE THAT I CAN BE FOR HER. WILL CALL CHHAYA CRTTS AT [facility] [phone] AND LET HIM KNOW OF PATIENT'S DECISION.
--- NOTE | 2019-06-08 00:47 | NUR ---
CALLED CHHAYA FARMER GENERAL AT [facility] [phone] AND INFORMED HIM OF PATIENT'S DECISION TO CANCEL TRANSFER FOR TONIGHT.
[2019-06-08] MEDS: ACETAMINOPHEN 325 MG TAB PO PRN ×2 (03:15→11:40)
[2019-06-08] MEDS: ONDANSETRON HCL 4 MG/2 ML VIAL IV PRN ×4 (03:15→20:47)
[2019-06-08 05:00] VITALS: BP 126/70
[2019-06-08 08:32] VITALS: BP 117/73
[2019-06-08] MEDS: traMADol HCL 50 MG TAB PO PRN ×3 (09:08→20:48)
[2019-06-08] MEDS: MEROPENEM 1GM IVPB 100 ML IV SCH ×2 (09:57→22:00)
[2019-06-08] MEDS: FAMOTIDINE 20 MG TAB PO SCH ×2 (09:57→23:22)
[2019-06-08] MEDS: SERTRALINE HCL 50 MG TAB PO SCH (09:57)
[2019-06-08] MEDS: NICOTINE 21MG/24 HR TOPICAL PATCH TD SCH (09:58)
--- NOTE | 2019-06-08 10:30 | NUR ---
PAGED THE INVESTMENT ACCOUNTING CLERK FRONT END MECHANIC TO CALL [facility] AND POSSIBLE GET A BED FOR TODAY PER DR. COCHRAN'S ORDERS, AWAITING CALL BACK.
--- NOTE | 2019-06-08 11:30 | NUR ---
RECEIVED CALL BACK FROM MELINDA/ STRATEGIC DEBRIEFING SPECIALIST, MELINDA INFORMED THAT PER DR. COCHRAN'S REQUEST TO PLEASE CALL [facility] STRATEGIC DEBRIEFING SPECIALIST AT [facility] AND POSSIBLE GET A BED FOR TODAY, MELINDA WILL CALL [facility].
[2019-06-08 12:33] VITALS: BP_SYST 112; BP_SYST 128; BP_DIAS 70; BP_DIAS 73
--- NOTE | 2019-06-08 16:20 | NUR ---
CALLED [facility] AT [phone] TO INQUIRE ON THE STATUS FOR THE PT'S BED, SPOKE TO MICHELET, MICHELET REQUESTED THE MOST RECENT NOTES AND LABS TO BE FAXED, THAT SHE WILL PUT THE REQUEST FOR A BED, AND ASK PT IF SHE DID WANTED TO BE TRANSFER, MICHELET INFORMED THAT PT AND FAMILY WERE EDUCATED BY LAST NIGHT'S NURSE, BY DR. COHCRAN, AND TODAY THE IMPORTANCE OF BEEN TRANSFER ON A TIMELY MANNER FOR CONTINUITY OF CARE, PT AND FAMILY VERBALIZED UNDERSTANDING AND AGREED TO BE TRANSFER REGARDLESS OF THE TIME, MICHELET REQUESTED FOR PT AND FAMILY TO BE INFORMED THAT IF THERE IS A BED AVAILABLE TODAY AND PT REFUSES AGAIN THAT PT WILL NO LONGER BE ACCEPTED AT [facility]. PT AND FAMILY AGREE.
[2019-06-08 17:09] VITALS: BP 109/64
--- NOTE | 2019-06-08 19:25 | NUR ---
Opening Shift Note Assumed care of patient, awake and alert. Patient ambulating around unit, steady gait noted. No S/S of distress/SOB or pain. Bed in lowest locked position, side rails up x2, call light within reach. Instructed on POC and to call for assist PRN, will continue to monitor for changes Q1hr and PRN.
--- NOTE | 2019-06-08 21:47 | NUR ---
Call From [facility] Received call from Eusebio at [facility] ([phone]), bed available, 7631 bed 1. Spoke with patient, patient agreed to transfer. Patient calling mother at this time to inform her, will call back Eusebio and inform him of patient's acceptance. Addendum: 06/08/19 at 2207 by MILADY HOLBROOK RN RN CORRECTION: siena Crespo.
--- NOTE | 2019-06-08 21:56 | NUR ---
Called Zak from [facility] Confirmed that patient is willing to transport [place], asked that we set up transport for patient. Will contact [facility] with patient's information.
[2019-06-08 22:09] VITALS: BP 119/70
--- NOTE | 2019-06-08 22:09 | NUR ---
[facility] Addendum: 06/09/19 at 0055 by MILADY HOLBROOK RN RN CORRECTION: Please disregard note.
--- NOTE | 2019-06-08 22:09 | NUR ---
[facility] to set up transportation, all questions and concerns addressed, told ETA to [facility] approximately 90 minutes. Patient made aware.
--- NOTE | 2019-06-08 22:11 | NUR ---
Called [facility] to inform them transport with [facility] had been set up, left voicemail. Will try again.
[2019-06-08 22:44] VITALS: BP 119/70
[2019-06-08] MEDS: TEMAZEPAM 15 MG CAP PO PRN (23:22)
--- NOTE | 2019-06-08 23:32 | NUR ---
Report and [facility] Called Zak from [facility] [place] again, transferred to Paty BROWN. Report given, all questions and concerns addressed. Accepting doctor is Dr. Corey Reaves and room number is 7631 bed 1. [facility] arrived while this RN was giving report to Paty BROWN, all questions and concerns addressed with [facility].
[2019-06-09] MEDS: VANCOMYCIN 500 MG in D5W 5% 100 ML IV SCH ×2
--- NOTE | 2019-06-09 00:09 | NUR ---
Transfer to [facility] Discharge instructions given as ordered. Encourage to follow up with PMD as instructed. All questions and concerns addressed. Patient verbalized understanding. Medication reconciliation form completed and copy given to [facility] with copy of the chart and all transfer paperwork. Midline to right upper arm remains patent and intact. All wrist bands removed. Patient taken to [facility] vehicle via gurney with all personal belongings, accompanied by [facility] staff, mother Devora, and sister Marjorie. No distress noted at time of departure.
== END 2019-06-09 00:09 | disposition short-term general hospital (02) | DRG 240 ==
LOC: ER 16:17 → OVERFLOW 16:18 → WEST WING 05-29 03:30
PROVIDERS: ADMIT Nurse Practitioner; ATTEND Internal Medicine
PROC: 0JH60WZ Insertion of Totally Implantable Vascular Access Device into Chest Subcutaneous Tissue and Fascia, Open Approach (ICD-10-PCS; 2019-06-04)
PROC: 02HV33Z Insertion of Infusion Device into Superior Vena Cava, Percutaneous Approach (ICD-10-PCS; principal; 2019-06-04 08:59)
DX: C19 Malignant neoplasm of rectosigmoid junction (principal); K65.1 Peritoneal abscess; R18.8 Other ascites; I82.409 Acute embolism and thrombosis of unspecified deep veins of unspecified lower extremity; D72.829 Elevated white blood cell count, unspecified; E87.6 Hypokalemia; K29.70 Gastritis, unspecified, without bleeding; K59.00 Constipation, unspecified; M40.294 Other kyphosis, thoracic region; Z82.49 Family history of ischemic heart disease and other diseases of the circulatory system; Z85.038 Personal history of other malignant neoplasm of large intestine; Z87.891 Personal history of nicotine dependence; Z83.3 Family history of diabetes mellitus; Z90.49 Acquired absence of other specified parts of digestive tract; Z79.899 Other long term (current) drug therapy
CPT/HCPCS: 36415; 71045; 71046; 74177; 74270; 80048; 80053; 80202; 82378; 82565; 83605; 83735; 84132; 85025; 85610; 85730; 86850; 86900; 86901; 87040; 87081; 90674; 94761; 96374; 96375; 96376; C1788; G0378; J0690; J2001; J2185; J2250; J2405; J2704; J3490; J7060

== ENCOUNTER 2020-02-03 20:43 | Inpatient (IN) | payer MEDICAID ==
[~2020-02-03] VITALS: Ht 154.9 cm; Wt 59.9 kg
[~2020-02-03 20:43] MED LIST changes: -FER325T PO; -NIC21P TOP
[2020-02-03] MEDS ORDERED: MORPHINE SULFATE 4 MG/ML SYR/VIAL IV ONE (21:30)
[2020-02-03] MEDS ORDERED: ONDANSETRON HCL 4 MG/2 ML VIAL IV ONE ×2 (21:30→21:45)
[2020-02-03] MEDS ORDERED: ONDANSETRON HCL 4 MG/2 ML VIAL ONE (21:31)
[2020-02-03 21:40] LABS: Basophils # (auto) 0.1 10 ^3/uL (0-0.2); Basophils % (auto) 0.6 % (0.0-2.0); Eosinophils # (auto) 0 10 ^3/uL (0-0.8); Eosinophils % (auto) 0.3 % (0.0-7.0); Hematocrit 43.4 % (36.0-46.0); Lymphocytes # (auto) 2.4 10 ^3/uL (0.4-5.4); Lymphocytes % (auto) 23.8 % (10.0-50.0); Mean Corpuscular Hemoglobin 32.9 pg (28.0-32.0); Mean Corpuscular Hgb Conc. 34.6 g/dL (32.0-36.0); Monocytes # (auto) 0.7 10 ^3/uL (0-1.3); Monocytes % (auto) 7.1 % (0.0-12.0); Neutrophils # (auto) 6.8 10 ^3/uL (1.6-8.6); Neutrophils % (auto) 68.2 % (37.0-80.0); Platelet Count (auto) 333 10^3/uL (140-450); Red Blood Cells 4.57 10^6/uL (4.0-5.20); Red Cell Distribution Width 12.6 % (11.8-14.3)
[2020-02-03] MEDS ORDERED: FAMOTIDINE (10MG/ML) 2ML VL IV ONE (21:45)
[2020-02-03] MEDS ORDERED: diphenhdrAMINE HCL 50 MG/1 ML VL IV ONE (21:45)
[2020-02-03 21:59] LABS: Albumin 4.2 g/dL (3.4-5.0); Calcium 9.1 mg/dL (8.5-10.1); Potassium 4.2 mmol/L (3.5-5.1)
[2020-02-03 22:04] LABS: Bilirubin, Total 0.6 mg/dL (0.2-1.0); Total Protein 8.7 g/dL (6.4-8.2)
[2020-02-03] MEDS ORDERED: SODIUM CHLORIDE 0.9% 1,000 ML IV ONE (22:15)
[2020-02-03 23:26] LABS: Urine Amorphous Crystal FEW /hpf (None Seen); Urine Bacteria FEW /hpf (None Seen); Urine Blood Negative /uL (Negative); Urine Hyaline Cast MANY /lpf (0 - 2); Urine Mucus FEW (None Seen); Urine Specific Gravity 1.029 (1.001-1.035); Urine WBC 2 /hpf (0 - 5)
[2020-02-03] MEDS ORDERED: TEMAZEPAM 15 MG CAP PO PRN (23:30)
[2020-02-03] MEDS ORDERED: ACETAMINOPHEN 325 MG TAB PO PRN (23:30)
[2020-02-03] MEDS ORDERED: cefTRIAXone 1GM/50ML D5W 50 ML IV ONE (23:30)
--- NOTE | 2020-02-04 00:30 | NUR ---
MS admit from ER NEETU ZHU admitted to tele/MS. Patient oriented to JOSH FOWLER RN primary RN, unit, room, bed, and unit policies regarding patient care and visiting hours. Patient weighed by bedscale and encouraged to call if they need something. Bed is in lowest/locked position with side rails up X's 2 and call light is within reach of patient. All questions and concerns addressed, patient verbalized understanding. Will continue care.
[2020-02-04 00:42] VITALS: BP 129/69
[2020-02-04] MEDS: SODIUM CHLORIDE 0.9% 1,000 ML IV SCH ×2 (00:59→09:17)
[2020-02-04] MEDS ORDERED: ACET-1156 PO (01:59)
[2020-02-04] MEDS ORDERED: IBUP200C3 PO (01:59)
[2020-02-04] MEDS ORDERED: ALPR0.5T PO (01:59)
[2020-02-04] MEDS ORDERED: DIPH25CA6 PO (01:59)
--- NOTE | 2020-02-04 02:00 | NUR ---
PAGED HOSPITALIST regarding pain medication.
--- NOTE | 2020-02-04 02:14 | NUR ---
RECEIVED CALL BACK FROM HOSPITALIST Received new orders. Will continue care.
--- NOTE | 2020-02-04 02:22 | NUR ---
ROUNDS Patient is resting in bed with no s/s of pain or discomfort. Will continue care.
[2020-02-04] MEDS: ONDANSETRON HCL 4 MG/2 ML VIAL IV PRN ×2 (05:03→09:16)
[2020-02-04] MEDS: MORPHINE SULF INJ 2 MG/ML SYRINGE 1ML IV PRN ×2 (05:04→11:11)
[2020-02-04] MEDS: metroNIDAZOLE 500MG/100ML 100 ML IV SCH ×2 (05:17→13:54)
[2020-02-04 05:43] LABS: Basophils # (auto) 0.1 10 ^3/uL (0-0.2); Basophils % (auto) 0.8 % (0.0-2.0); Eosinophils # (auto) 0.2 10 ^3/uL (0-0.8); Hemoglobin 12.7 g/dL (12.2-16.2); Lymphocytes # (auto) 2.6 10 ^3/uL (0.4-5.4); Lymphocytes % (auto) 30.7 % (10.0-50.0); Mean Corpuscular Hemoglobin 32.6 pg (28.0-32.0); Mean Corpuscular Hgb Conc. 34.2 g/dL (32.0-36.0); Mean Corpuscular Volume 95.3 fL (80.0-100.0); Monocytes # (auto) 0.9 10 ^3/uL (0-1.3); Neutrophils # (auto) 4.8 10 ^3/uL (1.6-8.6); Neutrophils % (auto) 56.5 % (37.0-80.0); Nucleated Red Blood Cells % 0.1 %; Platelet Count (auto) 303 10^3/uL (140-450); Red Blood Cells 3.88 10^6/uL (4.0-5.20); Red Cell Distribution Width 12.7 % (11.8-14.3); White Blood Cell 8.5 10^3/uL (4.4-10.8)
[2020-02-04 05:46] VITALS: BP 99/62
--- NOTE | 2020-02-04 05:54 | NUR ---
PAIN REASSESSMENT Patient is resting in bed with eyes closed and with no s/s of pain or discomfort noted. Will continue care.
[2020-02-04 06:00] LABS: BUN/Creatinine Ratio 28.9; Calcium 8.5 mg/dL (8.5-10.1); Potassium 3.5 mmol/L (3.5-5.1)
--- NOTE | 2020-02-04 07:45 | NUR ---
Patient in bed, awake, oriented x4. No acute distress noted.
[2020-02-04 09:00] VITALS: BP 105/52
[2020-02-04] MEDS ORDERED: cefTRIAXone 1GM/50ML D5W 50 ML IV SCH (09:00)
--- NOTE | 2020-02-04 09:16 | NUR ---
Patient stated she's nauseous. Zofran Inj given for nausea. Patient stated she's in pain, asked for Morphine. Explained to patient Morphine Sulf Inj not due at this time, her other pain medication is Tylenol. Patient refused Tylenol, stated she will wait for Morphine Sulf when it's due.
[2020-02-04] MEDS ORDERED: PANTOPRAZOLE 40 MG/10 ML VIAL INJ IV SCH (10:00)
--- NOTE | 2020-02-04 10:50 | NUR ---
Dr. Phillips at bedside. to put in discharge orders with prescription. MD ordered Heparin for Port a Cath as per Pharmacy protocol.
--- NOTE | 2020-02-04 10:54 | NUR ---
Dr. Phillips ordered to call the patient's mother Devora ([phone]). talking to patient's mother on the phone.
[2020-02-04] MEDS ORDERED: SACC1CAP3 PO (10:56)
[2020-02-04] MEDS ORDERED: METR500T PO (10:56)
[2020-02-04] MEDS ORDERED: LEVO500T21 PO (10:56)
--- NOTE | 2020-02-04 11:11 | NUR ---
Morphine Sulf Inj 2 mg given for pain level at 8.
--- NOTE | 2020-02-04 11:28 | NUR ---
Called Dr. Phillips regarding patient asking how much Vitamin C and Vitamin D does she have to take. Dr. Phillips said he already sent electronic prescription for Flagyl at patient's pharmacy at [facility]; the Vit. C 1,000 and Vit. D 5,000 units can be bought over the counter. Informed the patient.
[2020-02-04 12:36] VITALS: BP 101/63
--- NOTE | 2020-02-04 14:17 | NUR ---
Heparin flush administered via port a cath as per Pharmacy protocol. Rose needle removed as ordered. Tegaderm and gauze applied. No bleeding noted.
--- NOTE | 2020-02-04 14:33 | NUR ---
Discharge instructions given as ordered. Encourage to follow up with PMD as instructed. All questions and concerns addressed. Patient verbalized understanding. Medication reconciliation form completed and copy given to patient. IV removed with catheter intact, pressure dressing applied. 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 Patient stated her friend will wait for her when she's at the Main Lobby to pick her up. No distress noted at time of departure.
== END 2020-02-04 14:35 | disposition home or self-care (01) | DRG 249 ==
LOC: ER 20:43 → UNDOADMIN 20:44 → WEST WING 20:44 → CENTRAL 20:44
PROVIDERS: ADMIT Nurse Practitioner; ATTEND Internal Medicine
DX: K52.9 Noninfective gastroenteritis and colitis, unspecified (principal); N17.0 Acute kidney failure with tubular necrosis; E86.0 Dehydration; E87.1 Hypo-osmolality and hyponatremia; F12.90 Cannabis use, unspecified, uncomplicated; Z90.49 Acquired absence of other specified parts of digestive tract; Z98.51 Tubal ligation status; Z85.038 Personal history of other malignant neoplasm of large intestine; Z83.3 Family history of diabetes mellitus; Z82.49 Family history of ischemic heart disease and other diseases of the circulatory system; Z87.891 Personal history of nicotine dependence; Z80.3 Family history of malignant neoplasm of breast
CPT/HCPCS: 36415; 74176; 80048; 80053; 81001; 82150; 82378; 83690; 85025; 96365; 96375; C9113; G0378; J0696; J1642; J2405; J3490

== ENCOUNTER 2020-03-10 20:45 | Emergency (ER) | payer MEDICAID ==
[~2020-03-10] VITALS: Ht 154.9 cm; Wt 54.9 kg
[~2020-03-10 20:45] MED LIST changes: +ACET-1156 PO; +LEVO500T21 PO; +METR500T PO; +SACC1CAP3 PO
[2020-03-10] MEDS ORDERED: MORPHINE SULFATE 4 MG/ML SYR/VIAL IV ONE (21:30)
[2020-03-10] MEDS ORDERED: SODIUM CHLORIDE 0.9% 1,000 ML IV ONE (21:30)
[2020-03-10] MEDS ORDERED: ONDANSETRON HCL 4 MG/2 ML VIAL IV ONE (21:30)
[2020-03-10 21:31] LABS: Basophils # (auto) 0.1 10 ^3/uL (0-0.2); Basophils % (auto) 0.6 % (0.0-2.0); Eosinophils # (auto) 0.2 10 ^3/uL (0-0.8); Eosinophils % (auto) 2.4 % (0.0-7.0); Hematocrit 44.2 % (36.0-46.0); Lymphocytes # (auto) 2.5 10 ^3/uL (0.4-5.4); Lymphocytes % (auto) 24.9 % (10.0-50.0); Mean Corpuscular Hemoglobin 32.6 pg (28.0-32.0); Mean Corpuscular Hgb Conc. 33.9 g/dL (32.0-36.0); Mean Corpuscular Volume 96.1 fL (80.0-100.0); Monocytes # (auto) 0.8 10 ^3/uL (0-1.3); Monocytes % (auto) 7.8 % (0.0-12.0); Neutrophils # (auto) 6.4 10 ^3/uL (1.6-8.6); Neutrophils % (auto) 64.3 % (37.0-80.0); Platelet Count (auto) 276 10^3/uL (140-450); Red Blood Cells 4.59 10^6/uL (4.0-5.20); Red Cell Distribution Width 12.2 % (11.8-14.3)
[2020-03-10 21:46] LABS: Albumin 3.9 g/dL (3.4-5.0); BUN/Creatinine Ratio 19.8; Calcium 10.9 mg/dL (8.5-10.1); Potassium 3.6 mmol/L (3.5-5.1)
[2020-03-10 21:49] LABS: Bilirubin, Total 0.5 mg/dL (0.2-1.0); Total Protein 7.9 g/dL (6.4-8.2)
[2020-03-11] MEDS ORDERED: SODIUM CHLORIDE 0.9% 1,000 ML IV ONE ×2 (00:45→01:45)
[2020-03-11] MEDS ORDERED: PROMETHAZINE HCL 25 MG/ML 1ML IV ONE (00:45)
[2020-03-11 02:01] VITALS: BP 101/50
[2020-03-11] MEDS ORDERED: PANTOPRAZOLE 40 MG/10 ML VIAL INJ IV ONE ×2 (02:45→02:58)
[2020-03-11] MEDS ORDERED: ACETAMINOPHEN 325 MG TAB PO PRN (02:45)
[2020-03-11] MEDS ORDERED: HYDROcodone-ACET 5/325MG TAB PO PRN (02:45)
[2020-03-11] MEDS ORDERED: SODIUM CHLORIDE 0.9% 1,000 ML IV SCH (02:45)
[2020-03-11] MEDS ORDERED: PROMETHAZINE HCL 25 MG/ML 1ML IV PRN (02:45)
[2020-03-12] MEDS ORDERED: PANTOPRAZOLE 40 MG/10 ML VIAL INJ IV SCH (10:00)
== END 2020-03-11 03:11 | disposition home or self-care (01) ==
LOC: ER 20:49
DX: R10.84 Generalized abdominal pain (principal); R11.2 Nausea with vomiting, unspecified; F17.210 Nicotine dependence, cigarettes, uncomplicated; Z85.038 Personal history of other malignant neoplasm of large intestine
CPT/HCPCS: 36415; 74176; 80053; 83690; 85025; 96361; 96374; 96375; 99284; C9113; J2270; J2405; J2550; J7030

== ENCOUNTER 2020-04-08 10:43 | Inpatient (IN) | payer MEDICAID ==
[~2020-04-08] VITALS: Ht 154.9 cm; Wt 50.9 kg
[2020-04-08] MEDS ORDERED: PROCHLORPERAZINE EDISYLATE 5 MG/ML 2ML VIAL IV ONE ×2 (11:30→15:45)
[2020-04-08 12:04] LABS: Albumin 3.5 g/dL (3.4-5.0); Anion Gap 14 (5-15); Blood Urea Nitrogen 4 mg/dL (7-18); Calcium 9.8 mg/dL (8.5-10.1); Carbon Dioxide 15 mmol/L (21-32); Chloride 106 mmol/L (98-107); Potassium 3.5 mmol/L (3.5-5.1); Sodium 135 mmol/L (136-145)
[2020-04-08 12:05] LABS: Basophils # (auto) 0 10 ^3/uL (0-0.2); Basophils % (auto) 0.4 % (0.0-2.0); Eosinophils # (auto) 0.3 10 ^3/uL (0-0.8); Eosinophils % (auto) 4.2 % (0.0-7.0); Hematocrit 40.5 % (36.0-46.0); Hemoglobin 13.4 g/dL (12.2-16.2); Lymphocytes # (auto) 2.2 10 ^3/uL (0.4-5.4); Lymphocytes % (auto) 35.8 % (10.0-50.0); Mean Corpuscular Hemoglobin 31.8 pg (28.0-32.0); Mean Corpuscular Hgb Conc. 33.2 g/dL (32.0-36.0); Mean Corpuscular Volume 95.8 fL (80.0-100.0); Monocytes # (auto) 0.7 10 ^3/uL (0-1.3); Monocytes % (auto) 10.7 % (0.0-12.0); Neutrophils % (auto) 48.9 % (37.0-80.0); Nucleated Red Blood Cells % 0.1 %; Platelet Count (auto) 282 10^3/uL (140-450); Red Blood Cells 4.23 10^6/uL (4.0-5.20); Red Cell Distribution Width 12.6 % (11.8-14.3); White Blood Cell 6.2 10^3/uL (4.4-10.8)
[2020-04-08 12:09] LABS: Alanine Aminotransferase 22 U/L (13-56); Alkaline Phosphatase 51 U/L (45-117); Aspartate Aminotransferase 26 U/L (15-37); BUN/Creatinine Ratio 8.9; Bilirubin, Total 0.4 mg/dL (0.2-1.0); GFR African American 182 mL/min; GFR Non-African American 151 mL/min; Total Protein 7.6 g/dL (6.4-8.2)
[2020-04-08 12:15] LABS: Glucose 35 mg/dL (74-106)
[2020-04-08] MEDS ORDERED: DEXTROSE 50% SYRINGE 50 ML IV ONE (12:18)
[2020-04-08] MEDS ORDERED: DEXTROSE (50%) 50ML SYRG IV ONE ×3 (12:30→20:00)
[2020-04-08] MEDS ORDERED: PROMETHAZINE HCL 25 MG/ML 1ML IV ONE (13:45)
[2020-04-08] MEDS ORDERED: SODIUM CHLORIDE 0.9% 500 ML IV ONE ×2 (14:30→20:00)
[2020-04-08 16:00] LABS: Urine Bacteria NONE SEEN /hpf (None Seen); Urine Blood Negative /uL (Negative); Urine Hyaline Cast FEW /lpf (0 - 2); Urine Mucus FEW (None Seen); Urine Specific Gravity 1.017 (1.001-1.035); Urine WBC 27 /hpf (0 - 5)
[2020-04-08] MEDS ORDERED: cefTRIAXone 1GM/50ML D5W 50 ML IV ONE (16:15)
[2020-04-08] MEDS ORDERED: NITROGLYCERIN 0.4 MG SL TAB SL PRN (20:00)
[2020-04-08] MEDS ORDERED: MORPHINE SULF INJ 2 MG/ML SYRINGE 1ML IV PRN (20:00)
[2020-04-08] MEDS ORDERED: ACETAMINOPHEN 500 MG TAB PO PRN (20:00)
[2020-04-08] MEDS: DOCUSATE SOD 100 MG CAP PO SCH (22:00)
--- NOTE | 2020-04-08 22:00 | NUR ---
Telemetry admit from ER [facility] admitted to Telemetry unit. Patient oriented to Kim Guerrero, primary RN, unit, room, bed, and unit policies regarding patient care and visiting hours. Patient now on continuous telemetry monitoring, tele box # 78 and telemetry reading on arrival to unit is sinus rhythm 73. Patient placed on bedside oxygen, weighed by bedscale and encouraged to call if they need something. All questions and concerns addressed, patient verbalized understanding. Note:
[2020-04-08] MEDS: D5W/SOD CHL 0.45%/KCL 20MEQ 1,000 ML IV SCH (22:35)
[2020-04-08 23:00] VITALS: BP 119/65
[2020-04-08] MEDS: metroNIDAZOLE 500MG/100ML 100 ML IV SCH (23:03)
[2020-04-09] MEDS ORDERED: TEMAZEPAM 15 MG CAP PO ONE (02:45)
[2020-04-09] MEDS: ONDANSETRON HCL 4 MG/2 ML VIAL IV PRN ×2 (04:03→21:51)
[2020-04-09] MEDS: MORPHINE SULF INJ 2 MG/ML SYRINGE 1ML IV PRN ×4 (04:04→21:51)
[2020-04-09] MEDS: metroNIDAZOLE 500MG/100ML 100 ML IV SCH ×3 (05:25→21:51)
[2020-04-09] MEDS: D5W/SOD CHL 0.45%/KCL 20MEQ 1,000 ML IV SCH ×2 (05:25→10:56)
[2020-04-09 05:30] VITALS: BP 124/61
--- NOTE | 2020-04-09 07:30 | NUR ---
Opening Shift Note Assumed care of patient, awake and alert. No S/S of distress/SOB on room air. Patient complains of pain to bilateral upper extremities, will medicate as ordered. Bed in low and locked position, rails up x2, no-slip socks on, bedside commode close. Instructed on POC and to call for assist PRN, will continue to monitor for changes Q1hr and PRN.
[2020-04-09 08:00] LABS: Basophils # (auto) 0 10 ^3/uL (0-0.2); Basophils % (auto) 0.5 % (0.0-2.0); Eosinophils # (auto) 0.2 10 ^3/uL (0-0.8); Eosinophils % (auto) 3.3 % (0.0-7.0); Hematocrit 38.4 % (36.0-46.0); Lymphocytes # (auto) 1.4 10 ^3/uL (0.4-5.4); Lymphocytes % (auto) 23.6 % (10.0-50.0); Mean Corpuscular Hgb Conc. 33.8 g/dL (32.0-36.0); Mean Corpuscular Volume 94.8 fL (80.0-100.0); Monocytes # (auto) 0.7 10 ^3/uL (0-1.3); Monocytes % (auto) 11.2 % (0.0-12.0); Neutrophils # (auto) 3.6 10 ^3/uL (1.6-8.6); Neutrophils % (auto) 61.4 % (37.0-80.0); Nucleated Red Blood Cells % 0.1 %; Platelet Count (auto) 240 10^3/uL (140-450); Red Blood Cells 4.05 10^6/uL (4.0-5.20); Red Cell Distribution Width 12.6 % (11.8-14.3); White Blood Cell 5.9 10^3/uL (4.4-10.8)
[2020-04-09 08:18] LABS: Potassium 3.6 mmol/L (3.5-5.1)
[2020-04-09 08:23] LABS: BUN/Creatinine Ratio 2.1; Calcium 9.4 mg/dL (8.5-10.1)
[2020-04-09 09:00] VITALS: BP 117/59
[2020-04-09] MEDS: cefTRIAXone 1GM/50ML D5W 50 ML IV SCH (09:16)
[2020-04-09] MEDS: DOCUSATE SOD 100 MG CAP PO SCH ×2 (09:19→21:51)
[2020-04-09] MEDS ORDERED: MAGN400T40 OR (09:26)
[2020-04-09] MEDS ORDERED: DOCU100C8 PO (09:26)
[2020-04-09] MEDS ORDERED: ONDA-143 PO (09:26)
[2020-04-09] MEDS ORDERED: PROC10TA2 PO (09:26)
[2020-04-09] MEDS ORDERED: NALO1TAB2 PO (09:26)
[2020-04-09] MEDS ORDERED: NIC21P TOP (09:26)
[2020-04-09] MEDS ORDERED: SCOP1DIS9 TD (09:26)
[2020-04-09] MEDS ORDERED: PANT40TA2 PO (09:26)
[2020-04-09] MEDS ORDERED: NALO4SPR2 (09:26)
[2020-04-09] MEDS ORDERED: SENN1TAB14 PO (09:26)
[2020-04-09] MEDS ORDERED: ASCO100076 PO (09:26)
[2020-04-09] MEDS ORDERED: CHOL20007 PO (09:27)
--- NOTE | 2020-04-09 09:40 | NUR ---
DR COCHRAN AT BEDSIDE POSSIBLE DISCHARGE TODAY, STATED WILL CALL PATIENTS MD AT [facility]
[2020-04-09] MEDS: HYDROcodone-ACET 5/325MG TAB PO PRN ×2 (10:10→17:53)
[2020-04-09 13:00] VITALS: BP 105/51
--- NOTE | 2020-04-09 15:16 | NUR ---
CALL FROM FAMILY PASSWORD VERIFIED, UPDATED ON PLAN OF CARE, AWAITING ANY NEW ORDERS FROM DR COCHRAN
--- NOTE | 2020-04-09 15:26 | NUR ---
CALL FROM DR COCHRAN NEW ORDERS TO BE CARRIED OUT, NO DISCHARGE TODAY
[2020-04-09 17:00] VITALS: BP 98/54
[2020-04-09 22:00] VITALS: BP 97/55
[2020-04-09] MEDS: ALPRAZolam 0.25 MG TAB PO PRN (23:12)
[2020-04-10] MEDS: MORPHINE SULF INJ 2 MG/ML SYRINGE 1ML IV PRN ×4 (03:34→20:14)
[2020-04-10 05:00] VITALS: BP 111/60
[2020-04-10] MEDS: metroNIDAZOLE 500MG/100ML 100 ML IV SCH ×3 (05:58→21:21)
[2020-04-10 07:22] LABS: BUN/Creatinine Ratio 2.5; Magnesium 1.8 mg/dL (1.6-2.6); Phosphorus 3.5 mg/dL (2.5-4.90); Potassium 3.6 mmol/L (3.5-5.1)
--- NOTE | 2020-04-10 07:30 | NUR ---
Opening Shift Note Assumed care of patient, awake and alert. No S/S of distress/SOB or pain on room air. Instructed on POC and to call for assist PRN, will continue to monitor for changes Q1hr and PRN. Bed in low and locked position, rails up x2, no-slip socks on.
[2020-04-10 08:00] VITALS: BP 108/56
[2020-04-10] MEDS: ONDANSETRON HCL 4 MG/2 ML VIAL IV PRN ×2 (08:17→20:14)
[2020-04-10] MEDS: cefTRIAXone 1GM/50ML D5W 50 ML IV SCH (09:18)
[2020-04-10] MEDS: DOCUSATE SOD 100 MG CAP PO SCH ×2 (09:19→21:22)
--- NOTE | 2020-04-10 10:30 | NUR ---
DR KUNZ AT BEDSIDE STILL PENDING STOOL SAMPLE, EDUCATED PATIENT ON NEED TO COLLECT, HAT IN BEDSIDE COMMODE PROVIDED, PATIENT VERBALIZED UNDERSTANDING.
--- NOTE | 2020-04-10 11:56 | NUR ---
FAMILY CALL PASSWORD PROVIDED, UPDATED ON PATIENT CONDITION AND PLAN OF CARE. ALL QUESTIONS ANSWERED.
[2020-04-10 12:00] VITALS: BP 100/66
--- NOTE | 2020-04-10 12:41 | NUR ---
Est energy needs [id number] kcal (30-35 kcal/kg BW 54.5kg) Est protein needs 55-65g (1-1.2g/kg BW) Will reassess prn. Addendum: 04/10/20 at [address] Amended: Links added.
[2020-04-10] MEDS: PROMETHAZINE HCL 25 MG/ML 1ML IV PRN (14:37)
[2020-04-10 16:55] VITALS: BP 102/55
[2020-04-10 22:00] VITALS: BP 105/50
[2020-04-11] MEDS: MORPHINE SULF INJ 2 MG/ML SYRINGE 1ML IV PRN ×5 (00:36→21:21)
[2020-04-11] MEDS: PROMETHAZINE HCL 25 MG/ML 1ML IV PRN ×2 (00:39→10:30)
[2020-04-11 04:49] VITALS: BP 115/60
[2020-04-11] MEDS: metroNIDAZOLE 500MG/100ML 100 ML IV SCH ×3 (05:39→22:12)
[2020-04-11] MEDS: ONDANSETRON HCL 4 MG/2 ML VIAL IV PRN ×3 (05:40→21:21)
[2020-04-11 08:00] VITALS: BP 105/56
--- NOTE | 2020-04-11 08:35 | NUR ---
OPENING SHIFT NOTE Assumed care of patient, awake and alert. No S/S of distress/SOB or pain. Instructed on POC and to call for assist PRN. Bed in low and locked position. Side rails up x2. Call light within reach. Will continue to monitor for changes Q1hr and PRN.
[2020-04-11 12:00] VITALS: BP 99/53
[2020-04-11] MEDS: cefTRIAXone 1GM/50ML D5W 50 ML IV SCH (12:00)
[2020-04-11] MEDS: DOCUSATE SOD 100 MG CAP PO SCH ×2 (12:01→22:11)
[2020-04-11] MEDS ORDERED: MAGNESIUM OXIDE 400 MG TAB PO ONE (14:45)
--- NOTE | 2020-04-11 16:00 | NUR ---
FAMILY ASKING TO SPEAK WITH DR SAMMIE AVILA PAGED. DAUGHTER ENRIQUE ASKING FOR MD TO CALL HER AT [phone]. WANTS TO SPEAK TO MD REGARDING POC, NUTRITION, AND PAIN MANAGEMENT.
[2020-04-11 17:00] VITALS: BP 120/56
[2020-04-11] MEDS: HYDROcodone-ACET 5/325MG TAB PO PRN (18:22)
[2020-04-11 22:00] VITALS: BP 150/92
[2020-04-11] MEDS: ALPRAZolam 0.25 MG TAB PO PRN (22:11)
[2020-04-12] MEDS: MORPHINE SULF INJ 2 MG/ML SYRINGE 1ML IV PRN ×2 (01:42→06:44)
[2020-04-12] MEDS: PROMETHAZINE HCL 25 MG/ML 1ML IV PRN ×3 (01:43→20:24)
[2020-04-12 05:00] VITALS: BP 116/60
[2020-04-12] MEDS: metroNIDAZOLE 500MG/100ML 100 ML IV SCH ×3 (06:00→22:27)
[2020-04-12] MEDS: LEVOTHYROXINE SODIUM 50 MCG TAB PO SCH (06:26)
[2020-04-12] MEDS: ONDANSETRON HCL 4 MG/2 ML VIAL IV PRN ×2 (06:45→18:51)
--- NOTE | 2020-04-12 08:00 | NUR ---
OPENING SHIFT NOTE: PATIENT RESTING IN BED, AWAKE. THIS RN ADDRESSED CONCERNS, ASSISTED PATIENT OUT OF BED AND INTO CHAIR. UPDATED ON PLAN OF CARE. FALL PRECAUTIONS IN PLACE. CALL LIGHT WITHIN REACH, WILL CONTINUE TO MONITOR.
[2020-04-12 09:00] VITALS: BP 108/61
--- NOTE | 2020-04-12 09:45 | NUR ---
MD BUTCHER AT BEDSIDE.
[2020-04-12] MEDS: DOCUSATE SOD 100 MG CAP PO SCH ×2 (10:00→22:00)
--- NOTE | 2020-04-12 10:00 | NUR ---
PATIENT CARE: FULL BATH GIVEN, ORAL CARE. MINIMUM ASSISTANCE, PATIENT BACK IN BED POSITIONED FOR COMFORT.
[2020-04-12] MEDS: cefTRIAXone 1GM/50ML D5W 50 ML IV SCH (10:08)
[2020-04-12] MEDS: MAGNESIUM OXIDE 400 MG TAB PO SCH (10:08)
--- NOTE | 2020-04-12 10:10 | NUR ---
FAMILY CALL: SPOKE WITH PATIENT'S SISTER. LISTENED TO CONCERNS, UPDATED ON PLAN OF CARE. WILL CONTINUE TO MONITOR.
[2020-04-12] MEDS ORDERED: HYDROcodone-ACET 5/325MG TAB PO PRN (11:00)
--- NOTE | 2020-04-12 11:10 | NUR ---
MD COCHRAN AT BEDSIDE. SPOKE WITH FAMILY AND UPDATED PATIENT ON PLAN OF CARE. ORDERS RECEIVED.
[2020-04-12] MEDS: VANCOMYCIN HCL 125MG/5ML ORAL SOL PO SCH ×3 (12:44→22:28)
[2020-04-12] MEDS: KETOROLAC TROMETH 30 MG/ML 1ML VIAL IV PRN ×2 (12:45→20:25)
[2020-04-12 13:00] VITALS: BP 95/52
[2020-04-12] MEDS: HYDROcodone-ACET 5/325MG TAB PO PRN ×2 (14:30→22:29)
[2020-04-12 15:11] LABS: CRP High Sensitivity 1.19 mg/dL (< 0.3)
--- NOTE | 2020-04-12 15:33 | NUR ---
Nutrition Followup Notes Pt wt is 55.8 kg Pt was sleeping when rounded this morning. Pt is on a Clear Liquid diet, appetite is poor aeb ave 31% PO intake over two days. Per MD doc, pt in pain, 08/15 with fatigue and weakness. Will continue to closely monitor pertinent labs, PO intake and skin status prn. Will followup in 2-3 days Est energy needs 0607-6238 kcal (30-35 kcal/kg BW 54.5kg) Est protein needs 55-65g (1-1.2g/kg BW) Will reassess prn. LABS: BUN 1.0 l, CR 0.40 l GI: Noted 2 BM on 04/11 per RN doc BS: 18 mod risk Please refer to wound assessment report for full details. PES: Problem Inadequate oral intake r/t current medical condition aeb pt diet order of Clear liq, pt report poor appetite Comments 1) Continue to monitor po status, skin, labs, 2) Refer pt to [facility]PD on DC 3) Continue current plan of care
[2020-04-12 17:22] VITALS: BP 118/53
--- NOTE | 2020-04-12 19:05 | NUR ---
CARE ENDORSED TO KAT BROWN.
--- NOTE | 2020-04-12 19:15 | NUR ---
Opening Shift Note Received report from Sarah BROWN. Assumed care of patient, awake and alert. No S/S of distress/SOB or pain. Instructed on POC and to call for assist PRN, will continue to monitor for changes Q1hr and PRN.
[2020-04-12 22:00] VITALS: BP 96/60
[2020-04-12] MEDS: FLORASTOR (S. BOULARDII) 250 MG CAP PO SCH (22:28)
[2020-04-12] MEDS: ALPRAZolam 0.25 MG TAB PO PRN (22:29)
[2020-04-13 05:00] VITALS: BP 122/76
[2020-04-13] MEDS: metroNIDAZOLE 500MG/100ML 100 ML IV SCH ×2 (06:05→14:47)
[2020-04-13] MEDS: VANCOMYCIN HCL 125MG/5ML ORAL SOL PO SCH ×4 (06:05→22:42)
[2020-04-13] MEDS: ONDANSETRON HCL 4 MG/2 ML VIAL IV PRN ×2 (06:06→14:48)
[2020-04-13] MEDS: KETOROLAC TROMETH 30 MG/ML 1ML VIAL IV PRN ×2 (06:06→14:48)
[2020-04-13] MEDS: LEVOTHYROXINE SODIUM 50 MCG TAB PO SCH (06:28)
[2020-04-13 09:00] VITALS: BP 115/60
[2020-04-13] MEDS: DOCUSATE SOD 100 MG CAP PO SCH ×2 (10:00→22:41)
[2020-04-13] MEDS: FLORASTOR (S. BOULARDII) 250 MG CAP PO SCH ×2 (10:54→22:41)
[2020-04-13] MEDS: MAGNESIUM OXIDE 400 MG TAB PO SCH (10:54)
[2020-04-13] MEDS: cefTRIAXone 1GM/50ML D5W 50 ML IV SCH (10:54)
[2020-04-13 13:00] VITALS: BP 98/57
[2020-04-13 17:00] VITALS: BP 110/48
--- NOTE | 2020-04-13 19:00 | NUR ---
Opening Shift Note Assumed care of patient, awake and alert. No S/S of distress/SOB or pain. Instructed on POC and to call for assist PRN, will continue to monitor for changes Q1hr and PRN.
[2020-04-13] MEDS: HYDROcodone-ACET 5/325MG TAB PO PRN (20:23)
[2020-04-13 22:00] VITALS: BP 106/59
[2020-04-13] MEDS: ALPRAZolam 0.25 MG TAB PO PRN (22:40)
[2020-04-14 05:00] VITALS: BP 96/61
[2020-04-14] MEDS: LEVOTHYROXINE SODIUM 50 MCG TAB PO SCH (06:27)
[2020-04-14] MEDS: VANCOMYCIN HCL 125MG/5ML ORAL SOL PO SCH ×4 (06:27→21:40)
[2020-04-14 09:00] VITALS: BP 95/49
--- NOTE | 2020-04-14 09:00 | NUR ---
PT REFUSING SHOULDER INJECTION THIS AM. STATES SHE CANNOT HAVE STEROIDS WITH HER CHEMOTHERAPY.
[2020-04-14] MEDS: FLORASTOR (S. BOULARDII) 250 MG CAP PO SCH ×2 (09:38→21:38)
[2020-04-14] MEDS: cefTRIAXone 1GM/50ML D5W 50 ML IV SCH (09:38)
[2020-04-14] MEDS: MAGNESIUM OXIDE 400 MG TAB PO SCH (09:38)
[2020-04-14] MEDS: DOCUSATE SOD 100 MG CAP PO SCH ×2 (09:38→21:40)
[2020-04-14] MEDS: KETOROLAC TROMETH 30 MG/ML 1ML VIAL IV PRN ×2 (09:57→16:46)
[2020-04-14] MEDS: ONDANSETRON HCL 4 MG/2 ML VIAL IV PRN ×2 (09:58→16:46)
--- NOTE | 2020-04-14 12:34 | NUR ---
Nutrition Followup Notes WT: 56 kg Pt was sleeping when rounded this morning. Pt is on a Clear Liquid diet, appetite is poor with inadequate PO of < 50% x 4 per RN doc Est energy needs 4179-2009 kcal (30-35 kcal/kg BW 54.5kg), Est protein needs 55-65g (1-1.2g/kg BW) Will reassess prn. LABS: All labs wnl for today GI: Noted 2 BM today per RN doc BS: 18 mod risk Please refer to wound assessment report for full details. PES: Problem Inadequate oral intake r/t current medical condition aeb pt diet order of Clear liq, pt report poor appetite Rec: 1) consider ensure clear 1 carton tid. 2) consider alternate nutrition support if pt continues to be on cld with poor PO. 3) Refer pt to [facility]PD on DC. 3) Continue current plan of care. F/u high 2-3 days
[2020-04-14 13:00] VITALS: BP 106/52
[2020-04-14] MEDS: ALPRAZolam 0.25 MG TAB PO PRN (21:38)
[2020-04-14 22:00] VITALS: BP 92/59
[2020-04-14] MEDS ORDERED: IBUPROFEN 400 MG TAB PO PRN (22:00)
[2020-04-15 05:00] VITALS: BP 94/58
[2020-04-15] MEDS: LEVOTHYROXINE SODIUM 50 MCG TAB PO SCH (06:48)
[2020-04-15] MEDS: VANCOMYCIN HCL 125MG/5ML ORAL SOL PO SCH ×2 (06:48→11:50)
--- NOTE | 2020-04-15 07:30 | NUR ---
Opening Shift Note Assumed care of patient, awake and alert. No S/S of distress/SOB or pain. Instructed on POC and to call for assist PRN, will continue to monitor for changes Q1hr and PRN. Bed locked in lowest position with two side rails up and call light in reach.
[2020-04-15 08:00] VITALS: BP 97/61
[2020-04-15] MEDS: cefTRIAXone 1GM/50ML D5W 50 ML IV SCH (08:52)
[2020-04-15] MEDS: DOCUSATE SOD 100 MG CAP PO SCH (08:52)
[2020-04-15] MEDS: FLORASTOR (S. BOULARDII) 250 MG CAP PO SCH (08:55)
[2020-04-15] MEDS: MAGNESIUM OXIDE 400 MG TAB PO SCH (08:55)
[2020-04-15] MEDS: ONDANSETRON HCL 4 MG/2 ML VIAL IV PRN (08:56)
[2020-04-15 09:00] VITALS: BP 97/61
[2020-04-15] MEDS ORDERED: VANC125PO PO (11:38)
[2020-04-15] MEDS ORDERED: SACC250C PO (11:38)
[2020-04-15] MEDS ORDERED: LEV50T PO (11:38)
[2020-04-15 12:26] VITALS: BP 97/61
--- NOTE | 2020-04-15 15:10 | NUR ---
KATIE CATH ACCESS REMOVED. COOPER NEEDLE INTACT.
--- NOTE | 2020-04-15 15:21 | NUR ---
Discharge instructions given as ordered. Encourage to follow up with PMD as instructed. All questions and concerns addressed. Patient verbalized understanding. Medication reconciliation form completed and copy given to patient. No Home medications held in Pharmacy and none to be returned to patient, and no needed vaccines given Telemetry unit returned to ICU. Patient taken to vehicle via wheelchair with all personal belongings, accompanied by staff and family member. No distress noted at time of departure.
== END 2020-04-15 15:30 | disposition home or self-care (01) | DRG 248 ==
LOC: ER 10:43 → TELE 10:44 → TELE-WESTW 22:00
PROVIDERS: ADMIT Nurse Practitioner Acute Care; ATTEND Internal Medicine
DX: A04.72 Enterocolitis due to Clostridium difficile, not specified as recurrent (principal); C18.9 Malignant neoplasm of colon, unspecified; N30.00 Acute cystitis without hematuria; E86.0 Dehydration; E16.2 Hypoglycemia, unspecified; E03.9 Hypothyroidism, unspecified; M06.4 Inflammatory polyarthropathy; M77.9 Enthesopathy, unspecified; F32.9 Major depressive disorder, single episode, unspecified; E87.6 Hypokalemia; M19.012 Primary osteoarthritis, left shoulder; Z90.49 Acquired absence of other specified parts of digestive tract; Z87.891 Personal history of nicotine dependence; Z85.038 Personal history of other malignant neoplasm of large intestine; Z80.3 Family history of malignant neoplasm of breast; Z82.49 Family history of ischemic heart disease and other diseases of the circulatory system; Z85.048 Personal history of other malignant neoplasm of rectum, rectosigmoid junction, and anus; Z87.442 Personal history of urinary calculi; Z83.3 Family history of diabetes mellitus; Z68.21 Body mass index [BMI] 21.0-21.9, adult
CPT/HCPCS: 36415; 71046; 72125; 73200; 80048; 80053; 81001; 82085; 82378; 82550; 82962; 83036; 83605; 83690; 83735; 84100; 84439; 84443; 84484; 85025; 85652; 86141; 86200; 86431; 87040; 87045; 87086; 87427; 87493; 93005; 96361; 96365; 96375; G0378; J0696; J1642; J1885; J2405; J3490

== ENCOUNTER 2020-07-05 14:42 | Inpatient (IN) | payer MEDICAID ==
[~2020-07-05] VITALS: Ht 154.9 cm; Wt 54.6 kg
[~2020-07-05 14:42] MED LIST changes: -ACET-1156 PO; +CHOL20007 PO; +LEV50T PO; -LEVO500T21 PO; +MAGN400T40 OR; -METR500T PO; +NALO4SPR2; +NIC21P TOP; +ONDA-143 PO; +PROC10TA2 PO; -SACC1CAP3 PO; +SACC250C PO; +SCOP1DIS9 TD; +SENN1TAB14 PO; +VANC125PO PO
[2020-07-05] MEDS ORDERED: SODIUM CHLORIDE 0.9% 1,000 ML IVB ONE ×2 (15:07→16:00)
[2020-07-05] MEDS ORDERED: HYDR-4833 (15:13)
[2020-07-05] MEDS ORDERED: NEOM500T PO (15:13)
[2020-07-05] MEDS ORDERED: ONDA-155 (15:13)
[2020-07-05] MEDS ORDERED: MET500T PO (15:13)
[2020-07-05 15:47] LABS: Basophils # (auto) 0.1 10 ^3/uL (0-0.2); Basophils % (auto) 1.2 % (0.0-2.0); Eosinophils # (auto) 0 10 ^3/uL (0-0.8); Eosinophils % (auto) 0.4 % (0.0-7.0); Hematocrit 35.6 % (36.0-46.0); Hemoglobin 12.2 g/dL (12.2-16.2); Lymphocytes # (auto) 1.8 10 ^3/uL (0.4-5.4); Lymphocytes % (auto) 28.5 % (10.0-50.0); Mean Corpuscular Hemoglobin 32.5 pg (28.0-32.0); Mean Corpuscular Hgb Conc. 34.3 g/dL (32.0-36.0); Mean Corpuscular Volume 94.9 fL (80.0-100.0); Monocytes # (auto) 0.4 10 ^3/uL (0-1.3); Monocytes % (auto) 6.4 % (0.0-12.0); Neutrophils # (auto) 3.9 10 ^3/uL (1.6-8.6); Neutrophils % (auto) 63.5 % (37.0-80.0); Nucleated Red Blood Cells % 0.1 %; Platelet Count (auto) 260 10^3/uL (140-450); Red Blood Cells 3.75 10^6/uL (4.0-5.20); Red Cell Distribution Width 12.7 % (11.8-14.3); White Blood Cell 6.2 10^3/uL (4.4-10.8)
[2020-07-05] MEDS ORDERED: ONDANSETRON HCL 4 MG/2 ML VIAL ONE (15:53)
[2020-07-05] MEDS ORDERED: MORPHINE SULF INJ 2 MG/ML SYRINGE 1ML IV ONE (16:00)
[2020-07-05] MEDS ORDERED: ONDANSETRON HCL 4 MG/2 ML VIAL IV ONE (16:00)
[2020-07-05 16:04] LABS: Albumin 3.8 g/dL (3.4-5.0); Calcium 9.2 mg/dL (8.5-10.1); Magnesium 2.3 mg/dL (1.6-2.6); Potassium 3.6 mmol/L (3.5-5.1)
[2020-07-05 16:08] LABS: BUN/Creatinine Ratio 18.8; Bilirubin, Total 0.4 mg/dL (0.2-1.0); Total Protein 7.2 g/dL (6.4-8.2)
[2020-07-05 16:25] LABS: INR 1.15 (0.9-1.15)
[2020-07-05 16:31] LABS: Partial Thromboplastin Time > 139.0 sec (23.0-31.2)
[2020-07-05] MEDS ORDERED: PANTOPRAZOLE 40 MG/10 ML VIAL INJ IV ONE ×2 (16:40→16:45)
[2020-07-05] MEDS ORDERED: PROMETHAZINE HCL 25 MG/ML 1ML ONE (16:40)
[2020-07-05] MEDS ORDERED: PROMETHAZINE HCL 25 MG/ML 1ML IV ONE (16:45)
[2020-07-05 19:20] LABS: Urine Bacteria NONE SEEN /hpf (None Seen); Urine Blood Negative /uL (Negative); Urine Mucus FEW (None Seen); Urine Specific Gravity 1.019 (1.001-1.035); Urine WBC 4 /hpf (0 - 5)
[2020-07-05] MEDS ORDERED: NITROGLYCERIN 0.4 MG SL TAB SL PRN (19:45)
[2020-07-05] MEDS ORDERED: FAMOTIDINE (10MG/ML) 2ML VL IV PRN (19:45)
[2020-07-05] MEDS ORDERED: SODIUM CHLORIDE 0.9% 1,000 ML IV ONE (19:45)
[2020-07-05] MEDS ORDERED: OXYCODONE W/ ACETAMINOPHEN 5/325MG TABLET PO PRN (19:45)
[2020-07-05] MEDS ORDERED: PROMETHAZINE HCL 25 MG/ML 1ML IV PRN (19:45)
[2020-07-05] MEDS: METOCLOPRAMIDE HCL 5MG/ml INJ 2ml VIAL IV SCH ×2 (21:30→21:31)
[2020-07-05 21:43] VITALS: BP 118/53
--- NOTE | 2020-07-05 21:43 | NUR ---
MS admit from ER [facility] admitted to tele/MS after SBAR received. Patient oriented to Melia guerrero RN, unit, room, bed, and unit policies regarding patient care and visiting hours. Patient weighed by bed scale and encouraged to call if they need something. All questions and concerns addressed, patient verbalized understanding. Note: Came per wheelchair awake alert oriented x 4, placed in the bed comfortably, vital signs checked, routine admission done.
[2020-07-05] MEDS ORDERED: LORazepam 2MG/ML-1ML VIAL IV SCH (22:00)
[2020-07-06] MEDS ORDERED: PNEUMOCOCCAL VACC POLYS 25 MCG/0.5 ML VIAL IM SCH (00:30)
[2020-07-06] MEDS ORDERED: HYDR-4833 PO (00:44)
[2020-07-06] MEDS ORDERED: ONDA-155 PO (00:44)
[2020-07-06] MEDS ORDERED: PRED1PAK7 PO (00:44)
[2020-07-06] MEDS ORDERED: NIC21P TOP (00:44)
[2020-07-06] MEDS ORDERED: PRE5T PO (00:44)
[2020-07-06] MEDS ORDERED: LIDO1KIT21 EX (00:44)
[2020-07-06 05:00] VITALS: BP 129/64
[2020-07-06] MEDS: MORPHINE SULF INJ 2 MG/ML SYRINGE 1ML IV PRN ×2 (07:02→18:02)
[2020-07-06 08:30] VITALS: BP 149/75
--- NOTE | 2020-07-06 08:55 | NUR ---
Report given to Aditi Kat, patient is resting no distress.
[2020-07-06 09:00] VITALS: BP 149/75
[2020-07-06] MEDS: METOCLOPRAMIDE HCL 5MG/ml INJ 2ml VIAL IV SCH ×2 (10:22→17:49)
[2020-07-06 10:26] LABS: Basophils # (auto) 0.1 10 ^3/uL (0-0.2); Eosinophils # (auto) 0.1 10 ^3/uL (0-0.8); Eosinophils % (auto) 0.7 % (0.0-7.0); Hematocrit 34.6 % (36.0-46.0); Hemoglobin 12.1 g/dL (12.2-16.2); Lymphocytes # (auto) 3.7 10 ^3/uL (0.4-5.4); Lymphocytes % (auto) 40.9 % (10.0-50.0); Mean Corpuscular Hemoglobin 32.9 pg (28.0-32.0); Mean Corpuscular Volume 94.2 fL (80.0-100.0); Monocytes # (auto) 0.5 10 ^3/uL (0-1.3); Neutrophils # (auto) 4.6 10 ^3/uL (1.6-8.6); Neutrophils % (auto) 51.4 % (37.0-80.0); Nucleated Red Blood Cells % 0.1 %; Platelet Count (auto) 245 10^3/uL (140-450); Red Blood Cells 3.68 10^6/uL (4.0-5.20); Red Cell Distribution Width 12.5 % (11.8-14.3)
--- NOTE | 2020-07-06 11:45 | NUR ---
ss consult Per consult patient requesting information on advanced directive. Patient has been provided with advanced directive. Addendum: 07/06/20 at 1151 by Yolis Sosa Amended: Links added.
[2020-07-06] MEDS ORDERED: ONDANSETRON HCL 4 MG/2 ML VIAL IV PRN (12:00)
[2020-07-06 13:10] VITALS: BP 141/78
[2020-07-06] MEDS: PANTOPRAZOLE 40 MG/10 ML VIAL INJ IV SCH (13:38)
[2020-07-06] MEDS: predniSONE 1 MG TAB PO SCH (13:39)
--- NOTE | 2020-07-06 15:09 | NUR ---
Nutrition Assessment Est energy needs kcal (35-40 kcal/kg BW 52.8kg) Est protein needs 53-63g (1-1.2g/kg BW 52.8kg) Will reassess prn. Addendum: 07/06/20 at [address] Amended: Links added.
[2020-07-06 17:00] VITALS: BP 131/77
[2020-07-06] MEDS: Ensure Enlive Strawberry 8oz Bottle PO SCH (17:49)
[2020-07-06 22:00] VITALS: BP 102/58
[2020-07-07] MEDS: METOCLOPRAMIDE HCL 5MG/ml INJ 2ml VIAL IV SCH ×3 (00:38→12:00)
[2020-07-07 05:00] VITALS: BP 101/63
[2020-07-07] MEDS: MORPHINE SULF INJ 2 MG/ML SYRINGE 1ML IV PRN (05:15)
--- NOTE | 2020-07-07 07:25 | NUR ---
End of Shift Note Endorsed care to dayshift RN. At this time patient has no s/s of distress or SOB.
--- NOTE | 2020-07-07 07:40 | NUR ---
Opening Note Received report from material handler 2nd shift RN. Patient is awake, alert and oriented. Patient denies pain at this time. Patient is on room air, respirations even and unlabored. Reviewed plan of care with patient, patient verbalized understanding. Bed in low and locked position, call light within reach. Will continue to monitor Q1 hour and PRN.
[2020-07-07 07:53] LABS: INR 1.07 (0.9-1.15); Partial Thromboplastin Time 27.1 sec (23.0-31.2)
[2020-07-07] MEDS ORDERED: SENN1TAB14 PO (08:54)
[2020-07-07] MEDS ORDERED: PANT40TA2 PO (08:54)
[2020-07-07] MEDS ORDERED: PROC10TA2 PO (08:54)
[2020-07-07] MEDS: Ensure Enlive Strawberry 8oz Bottle PO SCH (08:58)
[2020-07-07] MEDS: predniSONE 1 MG TAB PO SCH (08:58)
[2020-07-07] MEDS: PANTOPRAZOLE 40 MG/10 ML VIAL INJ IV SCH (08:58)
--- NOTE | 2020-07-07 10:25 | NUR ---
Dr. Case at station MD states patient is cleared for discharge.
[2020-07-07 10:34] VITALS: BP 135/74
--- NOTE | 2020-07-07 12:31 | NUR ---
Discharge Discharge instructions given as ordered. Encourage to follow up with PMD as instructed. All questions and concerns addressed. Patient verbalized understanding. Medication reconciliation form completed and copy given to patient. Belongings from safe returned to patient. Smita cath flushed per protocol and and covered with Tegaderm. Patient ambulated to private vehicle unassisted with all personal belongings. No signs or symptoms of distress noted at this time.
== END 2020-07-07 12:25 | disposition home or self-care (01) | DRG 861 ==
LOC: ER 14:42 → OVERFLOW 14:43 → WEST WING 21:51
PROVIDERS: ADMIT Hospitalist; ATTEND Hospitalist
DX: G89.3 Neoplasm related pain (acute) (chronic) (principal); R11.2 Nausea with vomiting, unspecified; C19 Malignant neoplasm of rectosigmoid junction; D69.6 Thrombocytopenia, unspecified; K21.9 Gastro-esophageal reflux disease without esophagitis; G89.4 Chronic pain syndrome; Z90.49 Acquired absence of other specified parts of digestive tract; Z82.49 Family history of ischemic heart disease and other diseases of the circulatory system; T45.1X5A Adverse effect of antineoplastic and immunosuppressive drugs, initial encounter; T40.605A Adverse effect of unspecified narcotics, initial encounter; K59.03 Drug induced constipation
CPT/HCPCS: 36415; 71045; 74176; 80053; 81001; 83690; 83735; 83880; 85025; 85610; 85730; C9113; G0378; J1642; J2405

== ENCOUNTER → 2021-02-08 | Outpatient (CLI) | payer MEDICAID ==
[~2021-02-08] MED LIST changes: +HYDR-4833 PO; -ONDA-143 PO; +ONDA-155 PO; -SCOP1DIS9 TD; -VANC125PO PO
[2021-02-08 09:53] LABS: Basophils # (auto) 0 10 ^3/uL (0-0.2); Basophils % (auto) 0.3 % (0.0-2.0); Eosinophils # (auto) 0.1 10 ^3/uL (0-0.8); Eosinophils % (auto) 0.6 % (0.0-7.0); Hematocrit 39.8 % (36.0-46.0); Hemoglobin 13.8 g/dL (12.2-16.2); Lymphocytes % (auto) 20.6 % (10.0-50.0); Mean Corpuscular Hemoglobin 32.6 pg (28.0-32.0); Mean Corpuscular Hgb Conc. 34.7 g/dL (32.0-36.0); Mean Corpuscular Volume 94.1 fL (80.0-100.0); Monocytes # (auto) 0.4 10 ^3/uL (0-1.3); Monocytes % (auto) 4.1 % (0.0-12.0); Neutrophils # (auto) 7.2 10 ^3/uL (1.6-8.6); Neutrophils % (auto) 74.4 % (37.0-80.0); Nucleated Red Blood Cells % 0.1 %; Platelet Count (auto) 401 10^3/uL (140-450); Red Blood Cells 4.23 10^6/uL (4.0-5.20); Red Cell Distribution Width 13.5 % (11.8-14.3); White Blood Cell 9.7 10^3/uL (4.4-10.8)
[2021-02-08 11:43] LABS: Albumin 4.4 g/dL (3.4-5.0); Potassium 4.1 mmol/L (3.5-5.1)
[2021-02-08 11:57] LABS: BUN/Creatinine Ratio 26.7; Bilirubin, Total 0.4 mg/dL (0.2-1.0); Calcium 9.6 mg/dL (8.5-10.1); Total Protein 7.4 g/dL (6.4-8.2)
[2021-02-08 14:31] LABS: Hepatitis B Surface Antibody Negative
[2021-02-08 15:10] LABS: Hepatitis A Total Antibody Positive
[2021-02-08 15:35] LABS: Hepatitis C Antibody Negative (Negative)
[2021-02-08 15:36] LABS: Hepatitis B Core Total AB Negative; Hepatitis B Surface Antigen Negative (Negative)
[2021-02-08 16:39] LABS: Carcinoembryonic Antigen < 0.50 ng/mL (<5.0 OR =); Free T4 (Free Thyroxine) 1.16 ng/dL (0.89-1.76)
== END | disposition home or self-care (01) ==
LOC: LAB 09:12
PROVIDERS: ATTEND Internal Medicine
DX: C18.9 Malignant neoplasm of colon, unspecified (principal); E78.3 Hyperchylomicronemia
CPT/HCPCS: 36415; 80053; 82306; 82378; 83036; 84439; 84443; 85025; 86704; 86706; 86708; 86803; 87340

== ENCOUNTER 2021-03-03 13:07 | Emergency (ER) | payer MEDICAID ==
[~2021-03-03] VITALS: Ht 154.9 cm; Wt 56.7 kg
[2021-03-03 14:03] LABS: Urine Bacteria FEW /hpf (None Seen); Urine Blood Negative /uL (Negative); Urine Hyaline Cast MOD /lpf (0 - 2); Urine Mucus MODERATE (None Seen); Urine Specific Gravity 1.026 (1.001-1.035); Urine WBC 16 /hpf (0 - 5)
[2021-03-03] MEDS ORDERED: ONDANSETRON HCL 4 MG/2 ML VIAL IV ONE (14:15)
[2021-03-03] MEDS ORDERED: SODIUM CHLORIDE 0.9% 1,000 ML IVB ONE (15:30)
[2021-03-03] MEDS ORDERED: cefTRIAXone 1GM/50ML D5W 50 ML IV ONE (15:30)
[2021-03-03 15:42] LABS: Basophils # (auto) 0.1 10 ^3/uL (0-0.2); Basophils % (auto) 0.7 % (0.0-2.0); Eosinophils # (auto) 0.1 10 ^3/uL (0-0.8); Eosinophils % (auto) 0.7 % (0.0-7.0); Hematocrit 43.1 % (36.0-46.0); Hemoglobin 15.2 g/dL (12.2-16.2); Lymphocytes # (auto) 1.6 10 ^3/uL (0.4-5.4); Lymphocytes % (auto) 14.1 % (10.0-50.0); Mean Corpuscular Hemoglobin 32.9 pg (28.0-32.0); Mean Corpuscular Hgb Conc. 35.3 g/dL (32.0-36.0); Mean Corpuscular Volume 93.3 fL (80.0-100.0); Monocytes # (auto) 1.2 10 ^3/uL (0-1.3); Monocytes % (auto) 10.3 % (0.0-12.0); Neutrophils # (auto) 8.4 10 ^3/uL (1.6-8.6); Neutrophils % (auto) 74.2 % (37.0-80.0); Nucleated Red Blood Cells % 0.1 %; Platelet Count (auto) 354 10^3/uL (140-450); Red Blood Cells 4.62 10^6/uL (4.0-5.20); Red Cell Distribution Width 13.2 % (11.8-14.3); White Blood Cell 11.3 10^3/uL (4.4-10.8)
[2021-03-03 15:55] LABS: Magnesium 2.3 mg/dL (1.6-2.6)
[2021-03-03 15:57] LABS: Albumin 3.9 g/dL (3.4-5.0); Calcium 8.9 mg/dL (8.5-10.1); Potassium 3.2 mmol/L (3.5-5.1)
[2021-03-03 16:00] LABS: BUN/Creatinine Ratio 13.3; Total Protein 7.8 g/dL (6.4-8.2)
[2021-03-03] MEDS ORDERED: PROMETHAZINE HCL 25 MG/ML 1ML IV ONE (16:00)
[2021-03-03] MEDS ORDERED: MORPHINE SULF INJ 2 MG/ML SYRINGE 1ML IV ONE (16:00)
[2021-03-03] MEDS ORDERED: POTASSIUM EFFERVESENT TAB 25 MEQ PO ONE (18:45)
[2021-03-03 18:57] VITALS: BP 117/56
[2021-03-03] MEDS ORDERED: ACETAMINOPHEN 325 MG TAB PO ONE (19:15)
[2021-03-03] MEDS ORDERED: POTASSIUM CHL 20 Meq TABLET PO ONE (19:15)
== END 2021-03-03 20:06 | disposition home or self-care (01) ==
LOC: ER 13:07
DX: R11.2 Nausea with vomiting, unspecified (principal); E87.6 Hypokalemia; N39.0 Urinary tract infection, site not specified; Z20.822 Contact with and (suspected) exposure to COVID-19; K21.9 Gastro-esophageal reflux disease without esophagitis; Z87.891 Personal history of nicotine dependence
CPT/HCPCS: 36415; 71045; 74176; 80053; 81001; 83690; 83735; 85025; 87426; 93005; 96361; 96365; 96375; 99285; J0696; J2270; J2405; J2550; J7030

== ENCOUNTER 2021-03-04 19:37 | Inpatient (IN) | payer MEDICAID ==
[~2021-03-04] VITALS: Ht 154.9 cm; Wt 68.0 kg
[2021-03-04] MEDS ORDERED: LACTATED RINGER'S 1,000 ML IV ONE (20:15)
[2021-03-04] MEDS ORDERED: METOCLOPRAMIDE HCL 5MG/ml INJ 2ml VIAL IV ONE (20:15)
[2021-03-04] MEDS ORDERED: fentaNYL CITRATE 100 MCG/2 ML VL IV ONE (20:15)
[2021-03-04 20:21] LABS: Basophils # (auto) 0 10 ^3/uL (0-0.2); Basophils % (auto) 0.1 % (0.0-2.0); Eosinophils # (auto) 0 10 ^3/uL (0-0.8); Hematocrit 45.8 % (36.0-46.0); Hemoglobin 15.3 g/dL (12.2-16.2); Lymphocytes # (auto) 0.5 10 ^3/uL (0.4-5.4); Lymphocytes % (auto) 4.6 % (10.0-50.0); Mean Corpuscular Hemoglobin 32.7 pg (28.0-32.0); Mean Corpuscular Hgb Conc. 33.5 g/dL (32.0-36.0); Mean Corpuscular Volume 97.6 fL (80.0-100.0); Monocytes # (auto) 0.2 10 ^3/uL (0-1.3); Monocytes % (auto) 2.3 % (0.0-12.0); Neutrophils # (auto) 9.7 10 ^3/uL (1.6-8.6); Platelet Count (auto) 387 10^3/uL (140-450); Red Blood Cells 4.69 10^6/uL (4.0-5.20); Red Cell Distribution Width 13.2 % (11.8-14.3); White Blood Cell 10.4 10^3/uL (4.4-10.8)
[2021-03-04 20:43] LABS: Alanine Aminotransferase 84 U/L (13-56); Anion Gap 17 (5-15); Aspartate Aminotransferase 36 U/L (15-37); Blood Urea Nitrogen 11 mg/dL (7-18); Chloride 103 mmol/L (98-107); Glucose 103 mg/dL (74-106); Magnesium 2.3 mg/dL (1.6-2.6); Potassium 4.9 mmol/L (3.5-5.1); Sodium 128 mmol/L (136-145)
[2021-03-04 20:45] LABS: INR 1.11 (0.9-1.15); Partial Thromboplastin Time 38.4 sec (23.0-31.2)
[2021-03-04 20:47] LABS: Alkaline Phosphatase 133 U/L (45-117); BUN/Creatinine Ratio 13.3; Bilirubin, Total 0.5 mg/dL (0.2-1.0); GFR African American 90 mL/min; GFR Non-African American 74 mL/min; Total Protein 9.1 g/dL (6.4-8.2)
[2021-03-04 21:10] LABS: Carbon Dioxide 8 mmol/L (21-32)
[2021-03-04] MEDS ORDERED: metroNIDAZOLE 500MG/100ML 100 ML IV ONE (22:30)
[2021-03-04] MEDS ORDERED: CIPROFLOXACIN 400MG/200ML 200 ML IV ONE (22:30)
[2021-03-04] MEDS ORDERED: IOHEXOL 300 MG/ML 100ML BOTTLE IJ ONE (23:59)
[2021-03-05] MEDS ORDERED: PROMETHAZINE HCL 25 MG/ML 1ML IV ONE (01:00)
[2021-03-05] MEDS ORDERED: LACTATED RINGER'S 1,000 ML IV ONE (01:00)
[2021-03-05] MEDS ORDERED: LACTATED RINGER'S 1,000 ML IV SCH (04:45)
[2021-03-05 06:10] LABS: Urine Bacteria NONE SEEN /hpf (None Seen); Urine Blood 1+ /uL (Negative); Urine Mucus FEW (None Seen); Urine Specific Gravity 1.046 (1.001-1.035); Urine WBC <1 /hpf (0 - 5)
[2021-03-05] MEDS: ONDANSETRON HCL 4 MG/2 ML VIAL IV PRN ×2 (06:40→11:51)
[2021-03-05] MEDS: MORPHINE SULF INJ 2 MG/ML SYRINGE 1ML IV PRN ×2 (06:58→11:51)
[2021-03-05 07:00] VITALS: BP 119/61
[2021-03-05] MEDS ORDERED: PRE5T PO (07:00)
[2021-03-05 08:12] LABS: BUN/Creatinine Ratio 9.2; Calcium 9.3 mg/dL (8.5-10.1); Potassium 4.6 mmol/L (3.5-5.1)
[2021-03-05 08:13] LABS: Basophils # (auto) 0 10 ^3/uL (0-0.2); Basophils % (auto) 0.3 % (0.0-2.0); Eosinophils # (auto) 0 10 ^3/uL (0-0.8); Eosinophils % (auto) 0.1 % (0.0-7.0); Hematocrit 42.1 % (36.0-46.0); Hemoglobin 14.6 g/dL (12.2-16.2); Lymphocytes # (auto) 1.2 10 ^3/uL (0.4-5.4); Lymphocytes % (auto) 17.2 % (10.0-50.0); Mean Corpuscular Hgb Conc. 34.7 g/dL (32.0-36.0); Monocytes # (auto) 0.9 10 ^3/uL (0-1.3); Monocytes % (auto) 13.5 % (0.0-12.0); Neutrophils # (auto) 4.7 10 ^3/uL (1.6-8.6); Neutrophils % (auto) 68.9 % (37.0-80.0); Nucleated Red Blood Cells % 0.1 %; Platelet Count (auto) 337 10^3/uL (140-450); Red Blood Cells 4.43 10^6/uL (4.0-5.20); Red Cell Distribution Width 12.9 % (11.8-14.3); White Blood Cell 6.8 10^3/uL (4.4-10.8)
[2021-03-05 08:47] VITALS: BP 124/76
[2021-03-05] MEDS ORDERED: PANTOPRAZOLE 40 MG/10 ML VIAL INJ IV SCH (10:00)
[2021-03-05] MEDS ORDERED: cefTRIAXone 1GM/50ML D5W 50 ML IV SCH (10:00)
[2021-03-05] MEDS ORDERED: SODIUM BICARBONATE 50ML VIAL 50 ML in D5W 5% 1,000 ML IV SCH (11:30)
[2021-03-05] MEDS ORDERED: SUCRALFATE 1 GM/10 ML ORAL SUSP PO ONE (12:00)
[2021-03-05 13:00] VITALS: BP 146/74
[2021-03-05 15:32] VITALS: BP 146/74
[2021-03-05 16:13] LABS: BUN/Creatinine Ratio 8.6; Potassium 3.5 mmol/L (3.5-5.1)
[2021-03-05 17:00] VITALS: BP 147/75
[2021-03-05] MEDS ORDERED: SUCRALFATE 1 GM/10 ML ORAL SUSP PO SCH (17:00)
[2021-03-06] MEDS ORDERED: predniSONE 5 MG TAB PO SCH (10:00)
== END 2021-03-05 18:10 | disposition home health service (06) | DRG 249 ==
LOC: EDUNIT# 19:37 → EDBD 19:37 → ER 19:37 → OVERFLOW 03-05 04:40 → WEST WING 03-05 06:10
PROVIDERS: ADMIT Hospitalist; ATTEND Internal Medicine
DX: R11.2 Nausea with vomiting, unspecified (principal); E27.40 Unspecified adrenocortical insufficiency; E87.2 Acidosis; N39.0 Urinary tract infection, site not specified; E87.6 Hypokalemia; F12.90 Cannabis use, unspecified, uncomplicated; K21.9 Gastro-esophageal reflux disease without esophagitis; Z20.822 Contact with and (suspected) exposure to COVID-19; Z80.3 Family history of malignant neoplasm of breast; Z82.49 Family history of ischemic heart disease and other diseases of the circulatory system; Z88.8 Allergy status to other drugs, medicaments and biological substances; Z83.3 Family history of diabetes mellitus; Z85.038 Personal history of other malignant neoplasm of large intestine; Z87.891 Personal history of nicotine dependence; Z90.81 Acquired absence of spleen; Z92.21 Personal history of antineoplastic chemotherapy; Z79.899 Other long term (current) drug therapy
CPT/HCPCS: 36415; 36600; 74177; 80048; 80053; 81001; 82805; 83605; 83690; 83735; 83880; 84484; 85025; 85610; 85730; 87040; 87426; 93005; 96361; 96365; 96366; 96368; 96375; C9113; G0378; J0696; J2405; J3490

== ENCOUNTER → 2021-03-08 | Outpatient (CLI) | payer MEDICAID ==
[~2021-03-08] MED LIST changes: +PRE5T PO
[2021-03-08 13:00] LABS: Potassium 3.4 mmol/L (3.5-5.1)
[2021-03-08 13:08] LABS: Calcium 9.3 mg/dL (8.5-10.1)
== END | disposition home or self-care (01) ==
LOC: LAB 11:47
PROVIDERS: ATTEND Internal Medicine
DX: E87.6 Hypokalemia (principal)
CPT/HCPCS: 36415; 80048

== ENCOUNTER → 2021-08-24 | Outpatient (CLI) | payer MEDICAID ==
[2021-08-24 15:45] LABS: Basophils # (auto) 0.1 10 ^3/uL (0-0.2); Basophils % (auto) 1.2 % (0.0-2.0); Eosinophils # (auto) 0.1 10 ^3/uL (0-0.8); Hematocrit 40.4 % (36.0-46.0); Monocytes # (auto) 0.7 10 ^3/uL (0-1.3); White Blood Cell 10.9 10^3/uL (4.4-10.8)
[2021-08-24 15:47] LABS: Eosinophils % (auto) 0.7 % (0.0-7.0); Hemoglobin 13.7 g/dL (12.2-16.2); Lymphocytes % (auto) 27.6 % (10.0-50.0); Mean Corpuscular Hemoglobin 32.5 pg (28.0-32.0); Mean Corpuscular Volume 95.7 fL (80.0-100.0); Monocytes % (auto) 6.6 % (0.0-12.0); Neutrophils % (auto) 63.9 % (37.0-80.0); Red Blood Cells 4.22 10^6/uL (4.0-5.20); Red Cell Distribution Width 12.9 % (11.8-14.3)
[2021-08-24 16:16] LABS: Urine Bacteria NONE SEEN /hpf (None Seen); Urine Blood TRACE /uL (Negative); Urine Mucus FEW (None Seen); Urine Specific Gravity 1.022 (1.001-1.035); Urine WBC 2 /hpf (0 - 5)
[2021-08-24 16:23] LABS: Albumin 3.8 g/dL (3.4-5.0); Calcium 9.2 mg/dL (8.5-10.1); Potassium 3.9 mmol/L (3.5-5.1)
[2021-08-24 16:27] LABS: BUN/Creatinine Ratio 20.8; Bilirubin, Total 0.3 mg/dL (0.2-1.0); Total Protein 7.7 g/dL (6.4-8.2)
== END | disposition home or self-care (01) ==
LOC: LAB 15:26
PROVIDERS: ATTEND Internal Medicine
DX: C18.7 Malignant neoplasm of sigmoid colon (principal)
CPT/HCPCS: 36415; 80053; 81001; 82306; 82378; 85025; 87086

== ENCOUNTER 2021-10-15 14:58 | Inpatient (IN) | payer MEDICAID ==
[~2021-10-15] VITALS: Ht 154.9 cm; Wt 61.9 kg
[2021-10-15] MEDS ORDERED: SODIUM CHLORIDE 0.9% 1,000 ML IV ONE (15:15)
[2021-10-15 16:19] LABS: Urine Bacteria NONE SEEN /hpf (None Seen); Urine Blood Negative /uL (Negative); Urine Mucus FEW (None Seen); Urine Specific Gravity 1.031 (1.001-1.035); Urine WBC 3 /hpf (0 - 5)
[2021-10-15] MEDS ORDERED: METOCLOPRAMIDE HCL 5MG/ml INJ 2ml VIAL ONE (16:42)
[2021-10-15 16:44] LABS: Basophils # (auto) 0.1 10 ^3/uL (0-0.2); Mean Corpuscular Hgb Conc. 33.8 g/dL (32.0-36.0)
[2021-10-15 16:46] LABS: Basophils % (auto) 0.8 % (0.0-2.0); Eosinophils # (auto) 0 10 ^3/uL (0-0.8); Eosinophils % (auto) 0.4 % (0.0-7.0); Hemoglobin 13.9 g/dL (12.2-16.2); Lymphocytes # (auto) 2.1 10 ^3/uL (0.4-5.4); Lymphocytes % (auto) 20.2 % (10.0-50.0); Mean Corpuscular Hemoglobin 31.8 pg (28.0-32.0); Neutrophils # (auto) 7.3 10 ^3/uL (1.6-8.6); Neutrophils % (auto) 69.6 % (37.0-80.0); Nucleated Red Blood Cells % 0.1 %; Red Blood Cells 4.37 10^6/uL (4.0-5.20); Red Cell Distribution Width 12.2 % (11.8-14.3); White Blood Cell 10.6 10^3/uL (4.4-10.8)
[2021-10-15 16:59] LABS: Albumin 3.8 g/dL (3.4-5.0); Calcium 9.2 mg/dL (8.5-10.1); Potassium 3.7 mmol/L (3.5-5.1)
[2021-10-15] MEDS ORDERED: METOCLOPRAMIDE HCL 5MG/ml INJ 2ml VIAL IV ONE (17:00)
[2021-10-15 17:06] LABS: BUN/Creatinine Ratio 24.6; Bilirubin, Total 0.5 mg/dL (0.2-1.0); Total Protein 8.4 g/dL (6.4-8.2)
[2021-10-15] MEDS ORDERED: cefTRIAXone 1GM/50ML D5W 50 ML IV ONE (18:00)
[2021-10-15] MEDS ORDERED: AZITHROMYCIN 500MG/ 250ML 250 ML IV ONE (18:00)
[2021-10-15] MEDS ORDERED: ACETAMINOPHEN 325 MG TAB PO ONE (22:45)
[2021-10-16] MEDS ORDERED: MORPHINE SULFATE 4 MG/ML SYR/VIAL IV PRN (00:15)
[2021-10-16] MEDS ORDERED: NITROGLYCERIN 0.4 MG SL TAB SL PRN (00:15)
[2021-10-16] MEDS ORDERED: MORPHINE SULFATE INJECTION 2 MG/ML SYRG IV PRN (00:15)
[2021-10-16] MEDS ORDERED: ALBUTEROL SULF HFA 90MCG INH 200DOSE IN PRN ×2 (00:15→01:45)
[2021-10-16 02:14] VITALS: BP 118/73
[2021-10-16] MEDS: ONDANSETRON HCL 4 MG/2 ML VIAL IV PRN ×4 (02:40→18:28)
[2021-10-16 05:00] VITALS: BP 135/84
[2021-10-16 07:40] LABS: Basophils # (auto) 0.1 10 ^3/uL (0-0.2); Basophils % (auto) 0.7 % (0.0-2.0)
[2021-10-16 07:42] LABS: Eosinophils # (auto) 0.3 10 ^3/uL (0-0.8); Eosinophils % (auto) 2.9 % (0.0-7.0); Hemoglobin 12.9 g/dL (12.2-16.2); Lymphocytes # (auto) 2.2 10 ^3/uL (0.4-5.4); Lymphocytes % (auto) 24.3 % (10.0-50.0); Mean Corpuscular Hemoglobin 30.9 pg (28.0-32.0); Mean Corpuscular Hgb Conc. 33.1 g/dL (32.0-36.0); Mean Corpuscular Volume 93.3 fL (80.0-100.0); Monocytes # (auto) 1.2 10 ^3/uL (0-1.3); Monocytes % (auto) 12.9 % (0.0-12.0); Neutrophils # (auto) 5.4 10 ^3/uL (1.6-8.6); Neutrophils % (auto) 59.2 % (37.0-80.0); Red Blood Cells 4.19 10^6/uL (4.0-5.20); Red Cell Distribution Width 12.2 % (11.8-14.3); White Blood Cell 9.1 10^3/uL (4.4-10.8)
[2021-10-16 08:09] LABS: Calcium 8.5 mg/dL (8.5-10.1); Potassium 3.3 mmol/L (3.5-5.1)
[2021-10-16 08:58] VITALS: BP 106/63
[2021-10-16] MEDS ORDERED: ASCORBIC ACID 500 MG TAB PO SCH (10:00)
[2021-10-16] MEDS ORDERED: DOXYCYCLINE 100 MG TAB/CAP PO SCH (10:00)
[2021-10-16] MEDS ORDERED: ZINC SULFATE 220mg CAP or TAB PO SCH (10:00)
[2021-10-16] MEDS ORDERED: ENOXAPARIN SOD 40 MG/0.4 ML SYRINGE SC SCH (10:00)
[2021-10-16] MEDS ORDERED: CHOLECALCIFEROL (VITD3) 2,000 UNIT CAP/TAB PO SCH (10:00)
[2021-10-16] MEDS ORDERED: ACETAMINOPHEN 325 MG TAB PO PRN (10:15)
[2021-10-16 13:00] VITALS: BP 113/53
[2021-10-16 17:00] VITALS: BP 117/71
[2021-10-16 17:35] VITALS: BP 117/71
[2021-10-16] MEDS ORDERED: ALBUAER3 IN (17:37)
[2021-10-16] MEDS ORDERED: ONDA-155 PO (17:37)
== END 2021-10-16 18:55 | disposition home health service (06) | DRG 137 ==
LOC: ER 14:58 → TELE 10-16 00:10 → TELE-EAST 10-16 02:12
PROVIDERS: ADMIT Hospitalist; ATTEND Hospitalist
DX: U07.1 COVID-19 (principal); J96.01 Acute respiratory failure with hypoxia; J12.82 Pneumonia due to coronavirus disease 2019; E66.9 Obesity, unspecified; K21.9 Gastro-esophageal reflux disease without esophagitis; E03.9 Hypothyroidism, unspecified; F12.90 Cannabis use, unspecified, uncomplicated; Z68.36 Body mass index [BMI] 36.0-36.9, adult; Z80.3 Family history of malignant neoplasm of breast; Z82.49 Family history of ischemic heart disease and other diseases of the circulatory system; Z83.3 Family history of diabetes mellitus; Z87.891 Personal history of nicotine dependence; Z98.51 Tubal ligation status; Z81.8 Family history of other mental and behavioral disorders; Z84.1 Family history of disorders of kidney and ureter; Z88.8 Allergy status to other drugs, medicaments and biological substances
CPT/HCPCS: 36415; 71045; 74176; 80048; 80053; 81001; 82728; 84484; 85025; 86141; 87426; 93005; 96361; 96365; 96367; 96375; G0378; J0696; J2405

== ENCOUNTER → 2021-10-20 | Outpatient (CLI) | payer MEDICAID ==
[2021-10-20] VITALS (8 sets, daily range): BP systolic 101–137; BP diastolic 46–99
[~2021-10-20] VITALS: Ht 30.5 cm; Wt 0.5 kg
[~2021-10-20] MED LIST changes: +ALBUAER3 IN; +ONDANSETRON HCL 4 MG/2 ML VIAL IV ONE; -PROC10TA2 PO; +REGENERON 1200mg/250ml NS 250 ML IV ONE; -SACC250C PO
== END | disposition home or self-care (01) ==
LOC: ER 08:22
PROVIDERS: ATTEND Internal Medicine
DX: U07.1 COVID-19 (principal); R11.0 Nausea; K21.9 Gastro-esophageal reflux disease without esophagitis; E03.9 Hypothyroidism, unspecified; Z87.891 Personal history of nicotine dependence
CPT/HCPCS: 96374; J2405; J7050; M0243; Q0244

== ENCOUNTER → 2023-07-03 | Outpatient (CLI) | payer MEDICAID ==
[~2023-07-03] MED LIST changes: -ONDANSETRON HCL 4 MG/2 ML VIAL IV ONE; -REGENERON 1200mg/250ml NS 250 ML IV ONE
[2023-07-03 08:32] LABS: Basophils # (auto) 0.1 10 ^3/uL (0-0.2); Eosinophils # (auto) 0.1 10 ^3/uL (0-0.8); Eosinophils % (auto) 1.1 % (0.0-7.0); Hematocrit 40.9 % (36.0-46.0); Lymphocytes # (auto) 2.2 10 ^3/uL (0.4-5.4); Lymphocytes % (auto) 22.1 % (10.0-50.0); Mean Corpuscular Hemoglobin 32.9 pg (28.0-32.0); Mean Corpuscular Hgb Conc. 34.3 g/dL (32.0-36.0); Mean Corpuscular Volume 95.8 fL (80.0-100.0); Monocytes # (auto) 0.4 10 ^3/uL (0-1.3); Neutrophils # (auto) 7.2 10 ^3/uL (1.6-8.6); Neutrophils % (auto) 71.8 % (37.0-80.0); Red Blood Cells 4.28 10^6/uL (4.0-5.20); Red Cell Distribution Width 12.7 % (11.8-14.3); White Blood Cell 10.1 10^3/uL (4.4-10.8)
[2023-07-03 08:42] LABS: Urine Bacteria MANY /hpf (None Seen); Urine Blood TRACE /uL (Negative); Urine Clarity HAZY (Clear); Urine Color Yellow (Yellow); Urine Mucus FEW (None Seen); Urine Protein, UAD 1+ (Negative); Urine Specific Gravity 1.031 (1.001-1.035); Urine Urobilinogen Normal (Negative); Urine WBC 46 /hpf (0 - 5)
[2023-07-03 09:03] LABS: Calcium 9.2 mg/dL (8.5-10.1); Carbon Dioxide 22.8 mmol/L (20-30)
[2023-07-03 09:05] LABS: Alanine Aminotransferase 20 U/L (7-40); Albumin 4.5 g/dL (3.2-4.8); Anion Gap 7.2 (5-15); Aspartate Aminotransferase 11 U/L (13-40); Bilirubin, Total 0.3 mg/dL (0.2-1.0); Chloride 111 mmol/L (98-107); Cholesterol 231 mg/dL (< 200); HDL Cholesterol 52 mg/dL (40-59); LDL Cholesterol 170 mg/dL (< 100); Potassium 3.8 mmol/L (3.5-5.1); Sodium 141 mmol/L (136-145)
[2023-07-03 09:06] LABS: Total Protein 7.1 g/dL (5.7-8.2)
[2023-07-03 09:12] LABS: BUN/Creatinine Ratio 20.5 (10.0-20.0); Blood Urea Nitrogen 15 mg/dL (9-23); Glucose 103 mg/dL (74-106)
[2023-07-03 09:13] LABS: Alkaline Phosphatase 52 U/L (46-116)
[2023-07-03 10:03] LABS: Triglycerides 113 mg/dL (< 150)
== END | disposition home or self-care (01) ==
LOC: LAB 08:19
PROVIDERS: ATTEND Internal Medicine
DX: I10 Essential (primary) hypertension (principal)
CPT/HCPCS: 36415; 80053; 80061; 81001; 82043; 82306; 82607; 83036; 84443; 85025

== ENCOUNTER → 2023-10-09 | Outpatient (CLI) | payer MEDICAID ==
[2023-10-09 11:47] LABS: Alanine Aminotransferase 21 U/L (7-40); Albumin 4.6 g/dL (3.2-4.8); Alkaline Phosphatase 53 U/L (46-116); Anion Gap 8 (5-15); Aspartate Aminotransferase 21 U/L (13-40); BUN/Creatinine Ratio 19.7 (10.0-20.0); Blood Urea Nitrogen 14 mg/dL (9-23); Calcium 9.7 mg/dL (8.5-10.1); Carbon Dioxide 22 mmol/L (20-30); Chloride 110 mmol/L (98-107); Glucose 103 mg/dL (74-106); Potassium 3.8 mmol/L (3.5-5.1); Sodium 140 mmol/L (136-145)
[2023-10-09 11:48] LABS: Bilirubin, Total 0.4 mg/dL (0.2-1.0); Total Protein 7.1 g/dL (5.7-8.2)
== END | disposition home or self-care (01) ==
LOC: LAB 09:23
PROVIDERS: ATTEND Internal Medicine
DX: E27.1 Primary adrenocortical insufficiency (principal)
CPT/HCPCS: 36415; 80053

== ENCOUNTER → 2024-01-15 | Outpatient (CLI) | payer MEDICAID ==
[2024-01-15 10:13] LABS: Urine Bacteria FEW /hpf (None Seen); Urine Blood TRACE /uL (Negative); Urine Clarity HAZY (Clear); Urine Color Yellow (Yellow); Urine Mucus FEW (None Seen); Urine Protein, UAD TRACE (Negative); Urine Specific Gravity 1.032 (1.001-1.035); Urine Urobilinogen Normal (Negative); Urine WBC 2 /hpf (0 - 5)
[2024-01-15 10:24] LABS: Basophils # (auto) 0 10 ^3/uL (0-0.2); Basophils % (auto) 0.3 % (0.0-2.0); Eosinophils # (auto) 0.2 10 ^3/uL (0-0.8); Eosinophils % (auto) 2.2 % (0.0-7.0); Hematocrit 41.3 % (36.0-46.0); Hemoglobin 13.9 g/dL (12.2-16.2); Lymphocytes # (auto) 1.7 10 ^3/uL (0.4-5.4); Lymphocytes % (auto) 19.7 % (10.0-50.0); Mean Corpuscular Hemoglobin 32.6 pg (28.0-32.0); Mean Corpuscular Hgb Conc. 33.5 g/dL (32.0-36.0); Mean Corpuscular Volume 97.1 fL (80.0-100.0); Monocytes # (auto) 0.6 10 ^3/uL (0-1.3); Monocytes % (auto) 6.5 % (0.0-12.0); Neutrophils # (auto) 6.3 10 ^3/uL (1.6-8.6); Neutrophils % (auto) 71.3 % (37.0-80.0); Nucleated Red Blood Cells % 0.1 %; Red Blood Cells 4.26 10^6/uL (4.0-5.20); Red Cell Distribution Width 12.9 % (11.8-14.3); White Blood Cell 8.9 10^3/uL (4.4-10.8)
[2024-01-15 10:45] LABS: Alanine Aminotransferase 19 U/L (7-40); Albumin 4.3 g/dL (3.2-4.8); Alkaline Phosphatase 48 U/L (46-116); Anion Gap 8 (5-15); Aspartate Aminotransferase 16 U/L (13-40); BUN/Creatinine Ratio 15.1 (10.0-20.0); Blood Urea Nitrogen 11 mg/dL (9-23); Calcium 9.1 mg/dL (8.5-10.1); Carbon Dioxide 25 mmol/L (20-30); Chloride 109 mmol/L (98-107); Cholesterol 236 mg/dL (< 200); Glucose 91 mg/dL (74-106); HDL Cholesterol 51 mg/dL (40-59); LDL Cholesterol 170 mg/dL (< 100); Potassium 3.7 mmol/L (3.5-5.1); Sodium 142 mmol/L (136-145); Triglycerides 103 mg/dL (< 150)
[2024-01-15 10:46] LABS: Bilirubin, Total 0.2 mg/dL (0.2-1.0); Total Protein 6.5 g/dL (5.7-8.2)
== END | disposition home or self-care (01) ==
LOC: LAB 09:29
PROVIDERS: ATTEND Internal Medicine
DX: E78.5 Hyperlipidemia, unspecified (principal); R39.9 Unspecified symptoms and signs involving the genitourinary system
CPT/HCPCS: 36415; 80053; 80061; 81001; 85025

== ENCOUNTER → 2024-07-22 | Outpatient (CLI) | payer OTHER, MEDICAID ==
[~2024-07-22] MED LIST changes: -LEV50T PO; +LEVO-848 PO
[2024-07-22 09:18] LABS: Basophils # (auto) 0.1 10 ^3/uL (0-0.2); Basophils % (auto) 1.1 % (0.0-2.0); Eosinophils # (auto) 0 10 ^3/uL (0-0.8); Eosinophils % (auto) 0.5 % (0.0-7.0); Hematocrit 40.5 % (36.0-46.0); Lymphocytes # (auto) 1.3 10 ^3/uL (0.4-5.4); Lymphocytes % (auto) 14.3 % (10.0-50.0); Mean Corpuscular Hemoglobin 33.7 pg (28.0-32.0); Mean Corpuscular Hgb Conc. 34.5 g/dL (32.0-36.0); Mean Corpuscular Volume 97.6 fL (80.0-100.0); Monocytes # (auto) 0.4 10 ^3/uL (0-1.3); Monocytes % (auto) 4.2 % (0.0-12.0); Neutrophils # (auto) 7.6 10 ^3/uL (1.6-8.6); Neutrophils % (auto) 79.9 % (37.0-80.0); Platelet Count (auto) 377 10^3/uL (140-450); Red Blood Cells 4.15 10^6/uL (4.0-5.20); Red Cell Distribution Width 12.9 % (11.8-14.3); White Blood Cell 9.4 10^3/uL (4.4-10.8)
[2024-07-22 09:23] LABS: Urine Bacteria FEW /hpf (None Seen); Urine Blood TRACE /uL (Negative); Urine Clarity Clear (Clear); Urine Color Light-Yellow (Yellow); Urine Mucus FEW (None Seen); Urine Protein, UAD Negative (Negative); Urine Specific Gravity 1.016 (1.001-1.035); Urine Urobilinogen Normal (Negative); Urine WBC 3 /hpf (0 - 5)
[2024-07-22 09:44] LABS: Alanine Aminotransferase 25 U/L (7-40); Albumin 4.5 g/dL (3.2-4.8); Alkaline Phosphatase 50 U/L (46-116); Anion Gap 9 (5-15); Aspartate Aminotransferase 14 U/L (13-40); BUN/Creatinine Ratio 14.9 (10.0-20.0); Blood Urea Nitrogen 10 mg/dL (9-23); Calcium 9.7 mg/dL (8.7-10.4); Carbon Dioxide 22 mmol/L (20-30); Chloride 111 mmol/L (98-107); Glucose 103 mg/dL (74-106); LDL Cholesterol 70 mg/dL (< 100); Potassium 3.6 mmol/L (3.5-5.1); Sodium 142 mmol/L (136-145); Triglycerides 86 mg/dL (< 150)
[2024-07-22 09:45] LABS: Bilirubin, Total 0.3 mg/dL (0.2-1.0); Cholesterol 139 mg/dL (< 200); HDL Cholesterol 51 mg/dL (40-59); Total Protein 7.2 g/dL (5.7-8.2)
== END | disposition home or self-care (01) ==
LOC: LAB 08:48
PROVIDERS: ATTEND Internal Medicine
DX: N39.0 Urinary tract infection, site not specified (principal); E78.5 Hyperlipidemia, unspecified; Z79.52 Long term (current) use of systemic steroids; Z79.899 Other long term (current) drug therapy
CPT/HCPCS: 36415; 80053; 80061; 81001; 83036; 84439; 84443; 85025

== ENCOUNTER → 2025-01-03 | Outpatient (CLI) | payer OTHER, MEDICAID ==
[2025-01-03 09:05] LABS: Urine Bacteria FEW /hpf (None Seen); Urine Blood 1+ /uL (Negative); Urine Clarity Turbid (Clear); Urine Color Yellow (Yellow); Urine Hyaline Cast FEW /lpf (0 - 2); Urine Mucus FEW (None Seen); Urine Protein, UAD TRACE (Negative); Urine Specific Gravity 1.035 (1.001-1.035); Urine Squamous Epithelial Cell MOD /hpf (<5); Urine Urobilinogen Normal (Negative); Urine WBC 7 /HPF (0-5)
[2025-01-03 09:20] LABS: Basophils # (auto) 0.1 10 ^3/uL (0-0.2); Basophils % (auto) 1.2 % (0.0-2.0); Eosinophils # (auto) 0.1 10 ^3/uL (0-0.8); Eosinophils % (auto) 1.5 % (0.0-7.0); Hematocrit 41.9 % (36.0-46.0); Hemoglobin 14.1 g/dL (12.2-16.2); Lymphocytes # (auto) 2.5 10 ^3/uL (0.4-5.4); Lymphocytes % (auto) 27.3 % (10.0-50.0); Mean Corpuscular Hemoglobin 32.9 pg (28.0-32.0); Mean Corpuscular Hgb Conc. 33.6 g/dL (32.0-36.0); Mean Corpuscular Volume 97.9 fL (80.0-100.0); Monocytes # (auto) 0.7 10 ^3/uL (0-1.3); Monocytes % (auto) 7.9 % (0.0-12.0); Neutrophils # (auto) 5.8 10 ^3/uL (1.6-8.6); Neutrophils % (auto) 62.1 % (37.0-80.0); Nucleated Red Blood Cells % 0.1 %; Platelet Count (auto) 372 10^3/uL (140-450); Red Blood Cells 4.28 10^6/uL (4.0-5.20); Red Cell Distribution Width 12.7 % (11.8-14.3); White Blood Cell 9.3 10^3/uL (4.4-10.8)
[2025-01-03 09:49] LABS: Alanine Aminotransferase 18 U/L (7-40); Alkaline Phosphatase 47 U/L (46-116); Anion Gap 10 (5-15); Calcium 9.8 mg/dL (8.7-10.4); Carbon Dioxide 23 mmol/L (20-31); Glucose 91 mg/dL (74-106); LDL Cholesterol 75 mg/dL (< 100); Potassium 3.8 mmol/L (3.5-5.1); Sodium 142 mmol/L (136-145); Triglycerides 105 mg/dL (< 150)
[2025-01-03 09:50] LABS: Albumin 4.6 g/dL (3.2-4.8); Cholesterol 146 mg/dL (< 200); HDL Cholesterol 54 mg/dL (40-59); Total Protein 6.7 g/dL (5.7-8.2)
[2025-01-03 10:31] LABS: Aspartate Aminotransferase 11 U/L (13-40); Bilirubin, Total 0.3 mg/dL (0.2-1.0); Chloride 109 mmol/L (98-107)
[2025-01-03 11:21] LABS: BUN/Creatinine Ratio 17.5 (10.0-20.0); Blood Urea Nitrogen 14 mg/dL (9-23)
== END | disposition home or self-care (01) ==
LOC: LAB 07:53
PROVIDERS: ATTEND Internal Medicine
DX: Z13.1 Encounter for screening for diabetes mellitus (principal); E27.1 Primary adrenocortical insufficiency; H25.0 Age-related incipient cataract; E78.2 Mixed hyperlipidemia; E78.5 Hyperlipidemia, unspecified; R10.30 Lower abdominal pain, unspecified
CPT/HCPCS: 36415; 80053; 80061; 81001; 82607; 83036; 84443; 85025; 87086; 87088